=== PATIENT | female | born 1950 | race Caucasian/White ===

== ENCOUNTER 2016-09-15 09:54 | Inpatient (IN) | payer MEDICARE, OTHER ==
[~2016-09-15] VITALS: Ht 163.8 cm; Wt 107.7 kg
[~2016-09-15 09:54] MED LIST changes: -ALBU0.63 NEB; +BUPIVACAINE LIPOSOME PF 1.3% 20 ML VIAL INFIL ONE; -DOCU1CAP39 PO; -NOVONP2 SQ; -PERC5TAB12 PO; +STERILE TALC 4 GM AEROSOL CAN I-PLEURAL ONE; -VANCOMYCIN HCL 1000 MG VIAL ONE; +VANCOMYCIN HCL 1000 MG VIAL OTHER ONE
[2016-09-15] MEDS ORDERED: NOVONP2 SQ (12:20)
[2016-09-15] MEDS ORDERED: ALBU0.63 NEB (12:24)
[2016-09-16] VITALS (7 sets, daily range): BP systolic 129–189; BP diastolic 67–93; PULSE 58–94; RESP 16–22; TEMP 97.1–97.8; O2SAT 97–99
[2016-09-16] MEDS ORDERED: METOPROLOL TARTRATE 25 MG TAB PO PRN (06:30)
[2016-09-16] MEDS ORDERED: SODIUM CHLORID 0.9% 500 ML IV SCH (06:30)
[2016-09-16] MEDS: LACTATED RINGER'S 1000 ML IV SCH (06:30)
[2016-09-16] MEDS ORDERED: INSULIN HUMAN REGULAR 1,000 UNITS/10 ML VIAL SQ PRN (06:30)
[2016-09-16] MEDS ORDERED: DEXAMETHASONE SOD PHOS 4 MG/ML VIAL ONE (07:09)
[2016-09-16] MEDS ORDERED: MIDAZOLAM HCL 2 MG/2 ML VIAL ONE (07:09)
[2016-09-16] MEDS ORDERED: ACETAMINOPHEN 1000 MG/100 ML VIAL IV ONE (07:09)
[2016-09-16] MEDS ORDERED: FAMOTIDINE 20 MG/2 ML VIAL ONE (07:09)
[2016-09-16] MEDS ORDERED: BUPIVACAINE LIPOSO PF 1.3% INJ 20 ML, DEXAMETHASONE INJ 4 MG in SODIUM CHLORIDE 0.9% IN... PERIART SCH (07:45)
[2016-09-16] MEDS ORDERED: RESP: ALBUTEROL 2.5 MG/3 ML NEB (PRN) NEB (09:15)
[2016-09-16] MEDS ORDERED: ACETAMINOPHEN 325 MG TAB PO PRN (09:15)
[2016-09-16] MEDS ORDERED: oxyCODONE/ACETAMINOPHEN 5 MG/325 MG TAB PO PRN (09:15)
[2016-09-16] MEDS ORDERED: MAGNESIUM HYDROXIDE SUSP 30 ML CUP PO PRN (09:15)
[2016-09-16] MEDS ORDERED: Post-op Orders (for Pharmacy) MISC OTHER ONE (09:15)
[2016-09-16] MEDS ORDERED: ONDANSETRON HCL 4 MG/2 ML VIAL IV PUSH PRN (09:15)
[2016-09-16] MEDS ORDERED: SODIUM CHLORIDE 0.9% FLUSH 5 ML FLUSH IV FLUSH PRN (09:15)
[2016-09-16] MEDS ORDERED: fentaNYL CITRATE 250 MCG/5 ML AMP ONE (09:40)
[2016-09-16] MEDS: RESP: ALBUTEROL 2.5 MG/3 ML NEB (SCH) NEB ×3 (10:00→20:53)
[2016-09-16] MEDS ORDERED: DO NOT ADM ANY ANTICOAGULANT DRUGS XX PRN (10:15)
--- NOTE | 2016-09-16 10:25 | RADRPT ---
EXAM DATE/TIME: 09/16/2016 09:43 [facility] COMPARISON: CHEST EXPIRATION ONLY, August 12, 2016, 14:23. INDICATIONS : S/p thoracotomy MEDICAL HISTORY : Hypertension. Chronic obstructive pulmonary disease. SURGICAL HISTORY : None. ENCOUNTER: Initial ACUITY: 1 day PAIN SCORE: Non-responsive. LOCATION: Bilateral chest FINDINGS: A single view of the chest demonstrates the lungs to be symmetrically aerated without evidence of mas s, infiltrate or effusion. Cardiomegaly and slight interstitial prominence. The cardiomediastinal con tours are unremarkable. Osseous structures are intact. CONCLUSION: Cardiomegaly and slight interstitial prominence. No pleural effusions or pneumothorax. Remigio Narayanan MD on September 16, 2016 at 10:22 Board Certified Radiologist. This report was verified electronically.
[2016-09-16] MEDS ORDERED: INSULIN NovoLIN REGULAR SUPPLEMENTAL SCALE ONE (10:35)
[2016-09-16] MEDS ORDERED: INSULIN HUMAN REGULAR 1,000 UNITS/10 ML VIAL SQ ONE (11:30)
[2016-09-16] MEDS ORDERED: PHENYLEPH/NS 1000 MCG/10 ML SYR IV ONE (12:00)
[2016-09-16] MEDS ORDERED: ePHEDrine/NS 25 MG/5 ML SYR IV ONE (12:00)
[2016-09-16] MEDS ORDERED: NORMOSOL R INJ 1,000 ML IV ONE (12:00)
[2016-09-16] MEDS ORDERED: PROPOFOL 200 MG/20 ML AMP IV ONE (12:00)
[2016-09-16] MEDS ORDERED: SODIUM CHLORID 0.9% 500 ML INJ 500 ML IV ONE (12:00)
[2016-09-16] MEDS ORDERED: NEOSTIGMINE 3 MG/3 ML SYR IV ONE (12:00)
[2016-09-16] MEDS ORDERED: VECURONIUM BROMIDE 10 MG VIAL IV ONE (12:00)
[2016-09-16] MEDS ORDERED: SUGAMMADEX SODIUM 200 MG/2 ML VIAL IV PUSH ONE ×2 (12:00)
[2016-09-16] MEDS ORDERED: ONDANSETRON HCL 4 MG/2 ML VIAL IV PUSH ONE (12:00)
[2016-09-16] MEDS: KETOROLAC TROMETHAMINE 30 MG/ML (IVP) VIAL IV PUSH SCH ×2 (12:01→23:12)
[2016-09-16] MEDS: ACETAMINOPHEN 1000 MG/100 ML VIAL IV SCH ×2 (12:44→20:19)
[2016-09-16] MEDS ORDERED: AMIODARONE HCL 150 MG/3 ML VIAL IV ONE (13:34)
[2016-09-16] MEDS ORDERED: AMINOCAPROIC ACID INJ 250 MG/ML 20 ML VIAL IV ONE (13:34)
[2016-09-16] MEDS ORDERED: ESMOLOL HCL 100 MG/10 ML VIAL IV ONE (13:35)
[2016-09-16] MEDS ORDERED: DEXTROSE 5% IN WATER 100ML INJ 100 ML IV ONE (13:35)
[2016-09-16] MEDS ORDERED: EPINEPHrine HCL (1:1000) 30 MG/30 ML VIAL IV ONE (13:36)
[2016-09-16] MEDS ORDERED: HEPARIN SODIUM - SQ 10,000 UNITS/ML VIAL SQ ONE (13:37)
--- NOTE | 2016-09-16 13:37 | PD.OP ---
cc: Moody So MD; Tye Stinson MD Operative Report Date of Surgery: Sep 16, 2016 Preoperative Diagnosis: Postoperative Diagnosis: Procedure: 1. Left Video-Assisted Thoracoscopic Surgery (VATS). 2. Evacuation of Pleural Effusion. 3. Talc Pleurodesis. 4. Intercostal Nerve Block . Surgeon: Moody So Concrete Stone Fabricator(s): Brittny Means Operation and Findings: PREOPERATIVE DIAGNOSES 1. Recurrent Left Pleural Effusion. 2. Chronic Renal Insufficiency POSTOPERATIVE DIAGNOSES Same SURGICAL PROCEDURE 1. Left Video-Assisted Thoracoscopic Surgery (VATS). 2. Evacuation of Pleural Effusion. 3. Talc Pleurodesis. 4. Intercostal Nerve Block SURGEON Moody So MD IMPLEMENT MECHANIC CARMEN Sultana ANESTHESIA General double lumen endotracheal. CLAY DRY PRESS OPERATOR MARCELO Boswell, BURTON Rey MD PREPARATION ChloraPrep. COUNTS Needle, sponge, and instrument counts are correct. DRAINS One 24 Fr Manuel drain COMPLICATIONS None. INDICATIONS The patient is a 65 YO lady status post previous left thoracentesis for recurrent pleural effusion. The patient is being brought to the operating room for drainage and pleurodesis. DESCRIPTION OF PROCEDURE The patient was brought to the operating room and placed supine on the OR table. Following the induction of adequate general double lumen endotracheal anesthesia and placement of appropriate monitoring devices, the patient was placed in the right lateral decubitus position. The left chest and surrounding areas were then prepped and draped in a standard sterile fashion. A 5 mm camera port was introduced into the 8th intercostal space in posterior axillary line, and the camera introduced. A second 5 mm port was then placed anteriorly under direct visual guidance. Through the port, the suction device was advanced, and approximately 1100 mls of serous fluid evacuated. Complete evacuation of all fluid was confirmed under visual guidance. Exploration revealed no abnormalities of the pleura or of the lung tissue. Through the port site, talc pleurodesis was performed. The anterior port was removed and a 24 Fr Manuel drain was introduced. This was maintained in place with a nonabsorbable suture. Both of the entry sites were injected with Exparel solution. Following confirmation of the catheter in the proper place, the incisions were closed with 3 layers. The cheat drain was attached to a pleur-evac device, and sterile dressing applied. Intercostal nerve block was performed using Ropivacaine/ Morphine solution. The patient tolerated the procedure well and was extubated and transferred to the recovery room in stable condition. Moody So MD Sep 16, 2016 13:37
[2016-09-16] MEDS ORDERED: GLYCOPYRROLATE 0.2 MG/ML VIAL IV ONE (13:38)
[2016-09-16] MEDS ORDERED: DEXTROSE 50% IN WATER 50 ML VIAL(D50) IV PUSH PRN (13:45)
[2016-09-16] MEDS ORDERED: GLUCAGON 1 MG/ML VIAL OTHER PRN (13:45)
[2016-09-16] MEDS: MEDIUM DOSE INSULIN NOVOLIN REGULAR SUPPLEMENTAL SCALE SQ SCH ×2 (16:00→21:35)
[2016-09-16] MEDS: VANCOMYCIN INJ 1,000 MG in SODIUM CHLOR 0.9% 250 ML INJ 250 ML IV SCH (20:18)
[2016-09-16] MEDS: DOCUSATE CALCIUM 240 MG CAP PO SCH ×2 (21:00→21:35)
[2016-09-16] MEDS: FUROSEMIDE 40 MG TAB PO SCH (21:33)
[2016-09-16] MEDS: FLUTICASONE PROPIONATE 220 MCG/ACT 12 GM INHALER INH SCH (21:34)
[2016-09-16] MEDS: VALSARTAN 40 MG TAB PO SCH (21:34)
[2016-09-16] MEDS: DORZOLAMIDE 2% OPTH SOLN 200 DROP/10 ML BTLO EACH EYE SCH (21:34)
[2016-09-16] MEDS: SODIUM CHLORIDE 0.9% FLUSH 5 ML FLUSH IV FLUSH SCH (21:34)
[2016-09-16] MEDS: POTASSIUM CHLORIDE 10 MEQ CONTROLLED RELEASE TAB PO SCH (21:35)
[2016-09-16] MEDS: PANTOPRAZOLE SOD 40 MG DELAYED RELEASE TAB PO SCH (21:35)
[2016-09-16] MEDS: ATORVASTATIN 80 MG TAB PO SCH (21:35)
[2016-09-17] VITALS (20 sets, daily range): BP systolic 120–156; BP diastolic 68–92; PULSE 64–96; RESP 16–20; TEMP 97.5–98; O2SAT 97–100
[2016-09-17] MEDS: ACETAMINOPHEN 1000 MG/100 ML VIAL IV SCH ×2 (00:42→06:24)
[2016-09-17] MEDS: RESP: ALBUTEROL 2.5 MG/3 ML NEB (SCH) NEB ×4 (03:16→21:00)
[2016-09-17] MEDS: LEVOTHYROXINE SODIUM 125 MCG TAB PO SCH (05:46)
[2016-09-17] MEDS: KETOROLAC TROMETHAMINE 30 MG/ML (IVP) VIAL IV PUSH SCH (05:46)
--- NOTE | 2016-09-17 05:46 | RADRPT ---
EXAM DATE/TIME: 09/17/2016 05:21 [facility] COMPARISON: CHEST SINGLE AP, September 16, 2016, 9:43. INDICATIONS : Status post thoracotomy. MEDICAL HISTORY : Hypertension. Chronic obstructive pulmonary disease. SURGICAL HISTORY : None. ENCOUNTER: Subsequent ACUITY: 2 days PAIN SCORE: 0/10 LOCATION: chest FINDINGS: Portable AP view of the chest demonstrates stable cardiac silhouette size at the upper limits for nor mal. Lungs are underinflated with mild bibasilar airspace opacity. Some type or tubing or wires again overlies the left inferior hemithorax. No effusion or pneumothorax is appreciated. CONCLUSION: Stable chest x-ray with cardiac silhouette size at the upper limits for normal. There is stable bibas ilar opacity likely representing either atelectasis or consolidation. Gregor Santiago MD on September 17, 2016 at 5:43 Board Certified Radiologist. This report was verified electronically.
[2016-09-17] MEDS: MEDIUM DOSE INSULIN NOVOLIN REGULAR SUPPLEMENTAL SCALE SQ SCH ×2 (05:52→11:00)
[2016-09-17] MEDS: LACTATED RINGER'S 1000 ML IV SCH (06:30)
[2016-09-17] MEDS: INSULIN HUMAN NPH 1,000 UNITS/10 ML VIAL SQ SCH (09:00)
[2016-09-17] MEDS: FLUTICASONE PROPIONATE 220 MCG/ACT 12 GM INHALER INH SCH ×2 (09:00→21:06)
[2016-09-17] MEDS: DORZOLAMIDE/TIMOLOL OPTH SOLN 10 ML BTL EACH EYE SCH (09:00)
[2016-09-17] MEDS: DORZOLAMIDE 2% OPTH SOLN 200 DROP/10 ML BTLO EACH EYE SCH ×2 (09:00→21:08)
[2016-09-17] MEDS: VALSARTAN 40 MG TAB PO SCH ×2 (09:42→21:07)
[2016-09-17] MEDS: POTASSIUM CHLORIDE 10 MEQ CONTROLLED RELEASE TAB PO SCH ×2 (09:42→21:07)
[2016-09-17] MEDS: FUROSEMIDE 40 MG TAB PO SCH ×2 (09:43→17:34)
[2016-09-17] MEDS: VANCOMYCIN INJ 1,000 MG in SODIUM CHLOR 0.9% 250 ML INJ 250 ML IV SCH (09:48)
[2016-09-17] MEDS: SODIUM CHLORIDE 0.9% FLUSH 5 ML FLUSH IV FLUSH SCH ×2 (09:49→21:07)
--- NOTE | 2016-09-17 16:20 | PD.CAR.PN ---
CVT Progress Note Subjective/Hospital Course: 65/ f recurrent left pleural effusion / COPD PMH: HTN, HLP, DM, LIBBY surgery: 2/3 Left Video-Assisted Thoracoscopic Surgery (VATS), Evacuation of Pleural Effusion, Talc Pleurodesis. 2/3 on nasal cannula drained 250cc/ from CT / 12 hrs pain controlled consult PT / oob ambulate . Objective: GENERAL: SKIN: Warm and dry. HEAD: Normocephalic. EYES: No scleral icterus. No injection or drainage. NECK: Supple, trachea midline. No JVD or lymphadenopathy. CARDIOVASCULAR: Regular rate and rhythm without murmurs, gallops, or rubs. RESPIRATORY: diminished left lower lobe, chest tube in place left chest wall, no air leak to wall suction Breath sounds equal bilaterally. No accessory muscle use. GASTROINTESTINAL: Abdomen soft, non-tender, nondistended. MUSCULOSKELETAL: No cyanosis, or edema. BACK: Nontender without obvious deformity. No CVA tenderness. Vital Signs Date Time Temp Pulse Resp B/P Pulse Ox O2 Delivery O2 Flow Rate FiO2 09/17/16 14:59 97 Nasal Cannula 2.00 09/17/16 14:39 90 09/17/16 13:08 81 09/17/16 12:11 96 09/17/16 11:50 97.5 87 20 148/86 99 09/17/16 11:45 81 09/17/16 10:38 94 09/17/16 08:40 97.6 85 20 156/92 100 09/17/16 06:00 74 09/17/16 05:00 75 09/17/16 04:00 64 09/17/16 03:00 97.6 78 16 139/87 98 09/17/16 03:00 78 09/17/16 02:00 65 09/17/16 01:00 73 09/17/16 00:00 74 09/16/16 23:00 97.8 76 16 137/80 98 09/16/16 23:00 70 09/16/16 22:00 72 09/16/16 21:00 60 09/16/16 20:00 58 09/16/16 19:30 97.7 65 16 129/67 99 Telemetry: NSR (1) Pleural effusion, left (2) 1. Left Video-Assisted Thoracoscopic Surgery (VATS). Plan: talc/ path pending leave chest tube in pulm toileting wean 02 as tolerated (3) Insulin dependent diabetes mellitus Plan: home meds resumed increase Sliding scale coverage preprandial coverage (4) Hypertension Plan: home meds/ stable (5) COPD (chronic obstructive pulmonary disease) Plan: nebs / flovent (6) Atrial fibrillation (7) CKD (chronic kidney disease) stage 3, GFR 30-59 ml/min Plan: check labs in Marjan Nielson Sep 17, 2016 16:20
[2016-09-17] MEDS ORDERED: DEXTROSE 50% IN WATER 50 ML VIAL(D50) IV PUSH PRN (16:30)
[2016-09-17] MEDS ORDERED: GLUCAGON 1 MG/ML VIAL OTHER PRN (16:30)
[2016-09-17] MEDS: INSULIN ASPART 1,000 UNITS/10 ML VIAL SQ SCH (17:00)
[2016-09-17] MEDS: INSULIN ASPART SUPPLEMENTAL SCALE SQ SCH ×2 (17:30→21:08)
[2016-09-17] MEDS: oxyCODONE/ACETAMINOPHEN 5 MG/325 MG TAB PO PRN ×2 (17:33→21:14)
[2016-09-17] MEDS: ATORVASTATIN 80 MG TAB PO SCH (21:07)
[2016-09-17] MEDS: DOCUSATE SODIUM 100 MG CAP PO SCH (21:07)
[2016-09-17] MEDS: PANTOPRAZOLE SOD 40 MG DELAYED RELEASE TAB PO SCH (21:08)
[2016-09-18] VITALS (22 sets, daily range): BP systolic 110–163; BP diastolic 55–90; PULSE 58–86; RESP 16–21; TEMP 97.6–98; O2SAT 92–99
[2016-09-18] MEDS: oxyCODONE/ACETAMINOPHEN 5 MG/325 MG TAB PO PRN ×2 (01:20→05:48)
[2016-09-18] MEDS: RESP: ALBUTEROL 2.5 MG/3 ML NEB (SCH) NEB ×4 (04:08→21:00)
[2016-09-18] MEDS: LEVOTHYROXINE SODIUM 125 MCG TAB PO SCH (05:48)
--- NOTE | 2016-09-18 05:58 | RADRPT ---
EXAM DATE/TIME: 09/18/2016 05:18 [facility] COMPARISON: CHEST SINGLE AP, September 17, 2016, 5:21. INDICATIONS : Shortness of breath, possible pulmonary disease. MEDICAL HISTORY : Hypertension. Chronic obstructive pulmonary disease. SURGICAL HISTORY : None. ENCOUNTER: Subsequent ACUITY: 3 days PAIN SCORE: 0/10 LOCATION: Bilateral chest FINDINGS: Portable AP view of the chest demonstrates a normal-sized cardiac silhouette with calcification of th e aorta. Lungs are underinflated and there is mild airspace opacity at the right lung base. No pleura l effusion or pneumothorax is identified. There is some type of a tube or line overlying the left low er hemithorax. CONCLUSION: Stable chest x-ray with opacity at the right lung base that represents atelectasis or airspace consol idation. Atelectasis is favored given the appearance. Gregor Santiago MD on September 18, 2016 at 5:56 Board Certified Radiologist. This report was verified electronically.
[2016-09-18] MEDS: LACTATED RINGER'S 1000 ML IV SCH (06:30)
[2016-09-18 07:35] LABS: HEMATOCRIT 33.3 % (35.0-46.0); MEAN CORPUSCULAR HEMOGLOBIN 31.1 PG (27.0-34.0); MEAN CORPUSCULAR HGB CONC 34.2 % (32.0-36.0); PLATELET COUNT 196 TH/MM3 (150-450); RED BLOOD COUNT 3.66 MIL/MM3 (4.00-5.30); RED CELL DISTRIBUTION WIDTH 16.1 % (11.6-17.2); REVIEW FLAG FINAL; WHITE BLOOD COUNT 13.5 TH/MM3 (4.0-11.0)
[2016-09-18 07:52] LABS: BICARBONATE 26.8 MEQ/L (21.0-32.0); POTASSIUM 3.9 MEQ/L (3.5-5.1)
[2016-09-18] MEDS: POLYETHYLENE GLYCOL 17 GM PKG PO SCH (08:33)
[2016-09-18] MEDS: VALSARTAN 40 MG TAB PO SCH ×2 (08:33→20:37)
[2016-09-18] MEDS: DOCUSATE SODIUM 100 MG CAP PO SCH ×2 (08:33→20:40)
[2016-09-18] MEDS: POTASSIUM CHLORIDE 10 MEQ CONTROLLED RELEASE TAB PO SCH ×2 (08:33→20:37)
[2016-09-18] MEDS: FUROSEMIDE 40 MG TAB PO SCH ×2 (08:33→17:34)
[2016-09-18] MEDS: SODIUM CHLORIDE 0.9% FLUSH 5 ML FLUSH IV FLUSH SCH ×2 (08:34→20:36)
[2016-09-18] MEDS: FLUTICASONE PROPIONATE 220 MCG/ACT 12 GM INHALER INH SCH ×2 (08:34→20:35)
[2016-09-18] MEDS: DORZOLAMIDE 2% OPTH SOLN 200 DROP/10 ML BTLO EACH EYE SCH ×2 (08:35→20:35)
--- NOTE | 2016-09-18 08:45 | PD.CAR.PN ---
CVT Progress Note Subjective/Hospital Course: 65/ f recurrent left pleural effusion / COPD PMH: HTN, HLP, DM, LIBBY surgery: 2/3 Left Video-Assisted Thoracoscopic Surgery (VATS), Evacuation of Pleural Effusion, Talc Pleurodesis. 2/3 on nasal cannula drained 250cc/ from CT / 12 hrs pain controlled consult PT / oob ambulate 2/[address] to suction Ambulate . Objective: Vital Signs Date Time Temp Pulse Resp B/P Pulse Ox O2 Delivery O2 Flow Rate FiO2 09/18/16 08:00 97.6 66 17 142/83 98 09/18/16 07:00 78 09/18/16 06:00 72 09/18/16 04:00 98.0 73 16 117/55 99 09/18/16 04:00 68 09/18/16 02:00 70 09/18/16 00:00 82 09/18/16 00:00 97.8 82 16 157/78 98 09/17/16 22:00 84 09/17/16 20:00 90 09/17/16 20:00 97.9 90 16 147/68 100 09/17/16 18:05 72 09/17/16 17:19 90 09/17/16 16:09 98.0 84 18 120/74 98 09/17/16 16:09 84 09/17/16 14:59 97 Nasal Cannula 2.00 09/17/16 14:39 90 09/17/16 13:08 81 09/17/16 12:11 96 09/17/16 11:50 97.5 87 20 148/86 99 09/17/16 11:45 81 09/17/16 10:38 94 Labs: Laboratory Tests Test 09/18/16 06:00 White Blood Count 13.5 TH/MM3 (4.0-11.0) Red Blood Count 3.66 MIL/MM3 (4.00-5.30) Hemoglobin 11.4 GM/DL (11.6-15.3) Hematocrit 33.3 % (35.0-46.0) Mean Corpuscular Volume 91.0 FL (80.0-100.0) Mean Corpuscular Hemoglobin 31.1 PG (27.0-34.0) Mean Corpuscular Hemoglobin 34.2 % Concent (32.0-36.0) Red Cell Distribution Width 16.1 % (11.6-17.2) Platelet Count 196 TH/MM3 (150-450) Mean Platelet Volume 8.6 FL (7.0-11.0) Sodium Level 133 MEQ/L (136-145) Potassium Level 3.9 MEQ/L (3.5-5.1) Chloride Level 99 MEQ/L (98-107) Carbon Dioxide Level 26.8 MEQ/L (21.0-32.0) Anion Gap 7 MEQ/L (5-15) Blood Urea Nitrogen 29 MG/DL (7-18) Creatinine 1.92 MG/DL (0.50-1.00) Estimat Glomerular Filtration 26 ML/MIN (>89) Rate Random Glucose 156 MG/DL (74-106) Calcium Level 8.6 MG/DL (8.5-10.1) Result Diagram: 09/18/16 0600 09/18/16 0600 (1) Pleural effusion, left (2) 1. Left Video-Assisted Thoracoscopic Surgery (VATS). Plan: talc/ path pending leave chest tube in pulm toileting wean 02 as tolerated (3) Insulin dependent diabetes mellitus Plan: home meds resumed increase Sliding scale coverage preprandial coverage (4) Hypertension Plan: home meds/ stable (5) COPD (chronic obstructive pulmonary disease) Plan: nebs / flovent (6) Atrial fibrillation (7) CKD (chronic kidney disease) stage 3, GFR 30-59 ml/min Plan: check labs in Moody So MD Sep 18, 2016 08:45
[2016-09-18] MEDS: DORZOLAMIDE/TIMOLOL OPTH SOLN 10 ML BTL EACH EYE SCH (09:00)
[2016-09-18] MEDS: INSULIN ASPART SUPPLEMENTAL SCALE SQ SCH ×4 (09:36→21:00)
[2016-09-18] MEDS: INSULIN ASPART 1,000 UNITS/10 ML VIAL SQ SCH ×3 (09:37→17:00)
[2016-09-18] MEDS: INSULIN HUMAN NPH 1,000 UNITS/10 ML VIAL SQ SCH (09:40)
[2016-09-18] MEDS: ATORVASTATIN 80 MG TAB PO SCH (20:37)
[2016-09-18] MEDS: PANTOPRAZOLE SOD 40 MG DELAYED RELEASE TAB PO SCH (20:37)
[2016-09-19] VITALS (29 sets, daily range): BP systolic 125–155; BP diastolic 74–91; PULSE 68–104; RESP 16–20; TEMP 97.8–98.3; O2SAT 91–98
[2016-09-19] MEDS: RESP: ALBUTEROL 2.5 MG/3 ML NEB (SCH) NEB ×4 (03:18→20:54)
--- NOTE | 2016-09-19 04:20 | RADRPT ---
EXAM DATE/TIME: 09/19/2016 03:29 [facility] COMPARISON: CHEST SINGLE AP, September 18, 2016, 5:18. INDICATIONS : Shortness of breath, possible pulmonary disease. MEDICAL HISTORY : Hypertension. Chronic obstructive pulmonary disease. SURGICAL HISTORY : None. ENCOUNTER: Subsequent ACUITY: 4 - 6 days PAIN SCORE: 0/10 LOCATION: Bilateral chest FINDINGS: Portable AP view of the chest demonstrates a normal-sized cardiac silhouette with calcification of th e aorta. Lungs are underinflated and there is bibasilar airspace opacity, right greater than left. No pneumothorax or definite effusion is appreciated. A stable line overlies the left inferior hemithora x. CONCLUSION: Stable chest x-ray with mild bibasilar opacity, right greater than left, representing either atelecta sis or consolidation. Gregor Santiago MD on September 19, 2016 at 4:17 Board Certified Radiologist. This report was verified electronically.
[2016-09-19] MEDS: LEVOTHYROXINE SODIUM 125 MCG TAB PO SCH (06:03)
[2016-09-19] MEDS: LACTATED RINGER'S 1000 ML IV SCH (06:30)
--- NOTE | 2016-09-19 08:15 | PD.CAR.PN ---
CVT Progress Note Subjective/Hospital Course: 65/ f recurrent left pleural effusion / COPD PMH: HTN, HLP, DM, LIBBY surgery: 2/3 Left Video-Assisted Thoracoscopic Surgery (VATS), Evacuation of Pleural Effusion, Talc Pleurodesis. 2/3 on nasal cannula drained 250cc/ from CT / 12 hrs pain controlled consult PT / oob ambulate 2/[address] to suction Ambulate . 09/19 CT drainage declining Likely remove CT tomorrow and discharge home Objective: Vital Signs Date Time Temp Pulse Resp B/P Pulse Ox O2 Delivery O2 Flow Rate FiO2 09/19/16 06:00 82 09/19/16 05:00 80 09/19/16 04:00 97.8 94 20 145/77 93 09/19/16 04:00 88 09/19/16 03:21 92 Nasal Cannula 2.00 09/19/16 03:00 70 09/19/16 02:00 70 09/19/16 01:00 70 09/19/16 00:00 74 09/19/16 00:00 97.9 84 20 125/74 94 09/18/16 23:00 72 09/18/16 22:00 76 09/18/16 21:00 84 09/18/16 20:00 97.7 79 21 163/90 98 09/18/16 20:00 80 09/18/16 18:03 82 09/18/16 17:00 79 09/18/16 16:00 69 09/18/16 15:57 93 Nasal Cannula 2.00 09/18/16 15:00 79 09/18/16 15:00 97.9 79 18 134/90 92 09/18/16 14:00 72 09/18/16 13:00 85 09/18/16 12:00 86 09/18/16 11:00 97.6 58 17 110/60 93 09/18/16 11:00 81 09/18/16 10:00 78 09/18/16 09:29 98 Nasal Cannula 1.50 09/18/16 09:00 76 Result Diagram: 09/18/16 0600 09/18/16 0600 (1) Pleural effusion, left (2) 1. Left Video-Assisted Thoracoscopic Surgery (VATS). Plan: talc/ path pending leave chest tube in pulm toileting wean 02 as tolerated (3) Insulin dependent diabetes mellitus Plan: home meds resumed increase Sliding scale coverage preprandial coverage (4) Hypertension Plan: home meds/ stable (5) COPD (chronic obstructive pulmonary disease) Plan: nebs / flovent (6) Atrial fibrillation (7) CKD (chronic kidney disease) stage 3, GFR 30-59 ml/min Plan: check labs in am Moody So MD Sep 19, 2016 08:15
[2016-09-19] MEDS: INSULIN ASPART SUPPLEMENTAL SCALE SQ SCH ×4 (08:31→21:00)
[2016-09-19] MEDS: INSULIN ASPART 1,000 UNITS/10 ML VIAL SQ SCH ×3 (08:31→17:22)
[2016-09-19] MEDS: POTASSIUM CHLORIDE 10 MEQ CONTROLLED RELEASE TAB PO SCH ×2 (08:33→20:45)
[2016-09-19] MEDS: VALSARTAN 40 MG TAB PO SCH ×2 (08:33→20:45)
[2016-09-19] MEDS: DOCUSATE SODIUM 100 MG CAP PO SCH ×2 (08:33→21:00)
[2016-09-19] MEDS: POLYETHYLENE GLYCOL 17 GM PKG PO SCH (08:33)
[2016-09-19] MEDS: FUROSEMIDE 40 MG TAB PO SCH ×2 (08:33→17:22)
[2016-09-19] MEDS: SODIUM CHLORIDE 0.9% FLUSH 5 ML FLUSH IV FLUSH SCH ×2 (08:34→21:00)
[2016-09-19] MEDS: DORZOLAMIDE 2% OPTH SOLN 200 DROP/10 ML BTLO EACH EYE SCH ×2 (08:34→20:46)
[2016-09-19] MEDS: FLUTICASONE PROPIONATE 220 MCG/ACT 12 GM INHALER INH SCH ×2 (08:34→20:45)
[2016-09-19] MEDS: DORZOLAMIDE/TIMOLOL OPTH SOLN 10 ML BTL EACH EYE SCH (08:35)
[2016-09-19] MEDS: INSULIN HUMAN NPH 1,000 UNITS/10 ML VIAL SQ SCH (10:31)
[2016-09-19] MEDS: ATORVASTATIN 80 MG TAB PO SCH (20:45)
[2016-09-19] MEDS: PANTOPRAZOLE SOD 40 MG DELAYED RELEASE TAB PO SCH (21:00)
[2016-09-20] VITALS (15 sets, daily range): BP systolic 129–147; BP diastolic 60–84; PULSE 71–92; RESP 16–20; TEMP 97–98.3; O2SAT 93–98
[2016-09-20] MEDS: RESP: ALBUTEROL 2.5 MG/3 ML NEB (SCH) NEB ×2 (03:16→10:01)
[2016-09-20] MEDS: LEVOTHYROXINE SODIUM 125 MCG TAB PO SCH (06:00)
[2016-09-20] MEDS: INSULIN ASPART SUPPLEMENTAL SCALE SQ SCH ×2 (06:18→12:03)
[2016-09-20] MEDS: LACTATED RINGER'S 1000 ML IV SCH (06:30)
[2016-09-20] MEDS: DORZOLAMIDE 2% OPTH SOLN 200 DROP/10 ML BTLO EACH EYE SCH (08:27)
[2016-09-20] MEDS: INSULIN ASPART 1,000 UNITS/10 ML VIAL SQ SCH ×2 (08:28→12:04)
[2016-09-20] MEDS: FLUTICASONE PROPIONATE 220 MCG/ACT 12 GM INHALER INH SCH (08:28)
[2016-09-20] MEDS: INSULIN HUMAN NPH 1,000 UNITS/10 ML VIAL SQ SCH (08:29)
[2016-09-20] MEDS: VALSARTAN 40 MG TAB PO SCH (08:30)
[2016-09-20] MEDS: FUROSEMIDE 40 MG TAB PO SCH (08:30)
[2016-09-20] MEDS: POTASSIUM CHLORIDE 10 MEQ CONTROLLED RELEASE TAB PO SCH (08:30)
[2016-09-20] MEDS: DOCUSATE SODIUM 100 MG CAP PO SCH (08:31)
[2016-09-20] MEDS: POLYETHYLENE GLYCOL 17 GM PKG PO SCH (08:31)
[2016-09-20] MEDS: SODIUM CHLORIDE 0.9% FLUSH 5 ML FLUSH IV FLUSH SCH (08:31)
[2016-09-20] MEDS: DORZOLAMIDE/TIMOLOL OPTH SOLN 10 ML BTL EACH EYE SCH (08:34)
[2016-09-20] MEDS ORDERED: DOCU1CAP39 PO (13:10)
--- NOTE | 2016-09-20 13:15 | HHI.DS ---
Discharge Summary Admission Date Sep 16, 2016 at 05:47 Discharge Date: Sep 20, 2016 Admitting Diagnosis recurrent pleural effusion (1) CHF (congestive heart failure) Diagnosis: Secondary (2) DM (diabetes mellitus) Diagnosis: Principal (3) CKD (chronic kidney disease) stage 3, GFR 30-59 ml/min Diagnosis: Principal (4) 1. Left Video-Assisted Thoracoscopic Surgery (VATS). Diagnosis: Secondary (5) Pleural effusion, left Diagnosis: Principal Procedures 1. Left Video-Assisted Thoracoscopic Surgery (VATS). 2. Evacuation of Pleural Effusion. 3. Talc Pleurodesis. 4. Intercostal Nerve Block Brief History 65/ f recurrent left pleural effusion / COPD PMH: HTN, HLP, DM, LIBBY surgery: / Left Video-Assisted Thoracoscopic Surgery (VATS), Evacuation of Pleural Effusion, Talc Pleurodesis. CBC/BMP: 09/18/16 0600 09/18/16 0600 Significant Findings Laboratory Tests Test 09/18/16 06:00 White Blood Count 13.5 TH/MM3 (4.0-11.0) Red Blood Count 3.66 MIL/MM3 (4.00-5.30) Hemoglobin 11.4 GM/DL (11.6-15.3) Hematocrit 33.3 % (35.0-46.0) Sodium Level 133 MEQ/L (136-145) Blood Urea Nitrogen 29 MG/DL (7-18) Creatinine 1.92 MG/DL (0.50-1.00) Estimat Glomerular Filtration 26 ML/MIN (>89) Rate Random Glucose 156 MG/DL (74-106) Imaging Last Impressions Chest X-Ray 09/19/16 0500 Signed Impressions: Service Date/Time: Monday, September 19, 2016 03:29 - CONCLUSION: Stable chest x-ray with mild bibasilar opacity, right greater than left, representing either atelectasis or consolidation. Gregor Santiago MD PE at Discharge GENERAL: SKIN: Warm and dry. HEAD: Normocephalic. EYES: No scleral icterus. No injection or drainage. NECK: Supple, trachea midline. No JVD or lymphadenopathy. CARDIOVASCULAR: Regular rate and rhythm without murmurs, gallops, or rubs. RESPIRATORY: Breath sounds equal bilaterally., diminished left lower lobe No accessory muscle use./ chest tube dc / vaseline dressing applied GASTROINTESTINAL: Abdomen soft, non-tender, nondistended. MUSCULOSKELETAL: No cyanosis, or edema. BACK: Nontender without obvious deformity. No CVA tenderness. Hospital Course 65/ f recurrent left pleural effusion / COPD PMH: HTN, HLP, DM, LIBBY surgery: 2/3 Left Video-Assisted Thoracoscopic Surgery (VATS), Evacuation of Pleural Effusion, Talc Pleurodesis. 2/3 on nasal cannula drained 250cc/ from CT / 12 hrs pain controlled consult PT / oob ambulate 2/ Doing well Continue CT to suction Ambulate . 2/ CT drainage declining Likely remove CT tomorrow and discharge home / <100cc drainage from chest tube 12 hrs chest tube dc without difficulty pain controlled for dc home later today Pt Condition on Discharge: Good Discharge Disposition: Disch w/ Home Health Serv Discharge Instructions DIET: Follow Instructions for: Diabetic Diet Activities you can perform: Full Weight Bearing, Shower Only-No Bath Activities to avoid: Lifting/Bending, Driving Additional Activity Instructio: no lifting > 8 lbs or gallon of milk New Medications: Docusate Sodium (Dok) 100 Mg Cap 100 MG PO BID Constipation #30 CAP Continued Medications: Albuterol 18 GM Inh (Ventolin Hfa 18 GM Inh) 90 Mcg/Act Aer 2 PUFF INH Q4-6H PRN SHORTNESS OF BREATH #1 Ref 0 INHALER Albuterol Neb (Albuterol Neb) 0.63 Mg/3 Ml Neb 0.63 MG NEB Q4HR NEB PRN SHORTNESS OF BREATH #25 Ref 0 NEBULE Atorvastatin (Atorvastatin) 80 Mg Tab 80 MG PO HS Cholesterol Management #30 Ref 0 TAB Dorzolamide Opth Drops (Dorzolamide Opth Drops) 2% Soln 1 DROP EACH EYE BID Glaucoma #1 Ref 0 BOTTLE Fluticasone 12 GM Inh (Flovent Hfa 12 GM Inh) 220 Mcg/Act Inh 2 PUFF INH BID Use daily at the same time. Asthma Management #1 Ref 0 INHALER Furosemide (Lasix) 40 Mg Tab 40 MG PO BID@09,18 chf #60 TAB Insulin Human NPH Inj (Novolin N Inj) 1,000 Unit/10 Ml Vial 20 UNITS SQ DAILY Blood Sugar Management #10 Ref 0 ML Insulin Human Regular Inj (Novolin R Inj) 1,000 Unit/10 Ml Vial 1 SQ DIRECTED Sliding Scale As Directed. Blood Sugar Management #10 Ref 0 ML Levothyroxine (Levothyroxine) 125 Mcg Tab 125 MCG PO DAILY Thyroid #30 Ref 0 TAB Montelukast (Montelukast) 10 Mg Tab 10 MG PO q48 hrs #30 Ref 0 TAB Potassium Chloride ER (K-Tab) 10 Meq Tab 10 MEQ PO BID Electrolyte Replacement #60 Ref 0 TAB Valsartan (Valsartan) 40 Mg Tab 40 MG PO BID chf #60 Ref 0 TAB Marjan Waite Sep 20, 2016 13:15
--- NOTE | 2016-09-20 13:18 | HHI.DS ---
Discharge Summary Admission Date Sep 16, 2016 at 05:47 Admitting Diagnosis (1) CHF (congestive heart failure) Diagnosis: Secondary (2) DM (diabetes mellitus) Diagnosis: Principal (3) CKD (chronic kidney disease) stage 3, GFR 30-59 ml/min Diagnosis: Principal (4) 1 Left Video Assisted Thoracoscopic Surgery VATS Diagnosis: Secondary (5) Pleural effusion, left Diagnosis: Principal Procedures 1. Left Video-Assisted Thoracoscopic Surgery (VATS). 2. Evacuation of Pleural Effusion. 3. Talc Pleurodesis. 4. Intercostal Nerve Block Brief History 65/ f recurrent left pleural effusion / COPD PMH: HTN, HLP, DM, LIBBY surgery: 2/3 Left Video-Assisted Thoracoscopic Surgery (VATS), Evacuation of Pleural Effusion, Talc Pleurodesis. CBC/BMP: 09/18/16 0600 09/18/16 0600 Significant Findings Laboratory Tests Test 09/18/16 06:00 White Blood Count 13.5 TH/MM3 (4.0-11.0) Red Blood Count 3.66 MIL/MM3 (4.00-5.30) Hemoglobin 11.4 GM/DL (11.6-15.3) Hematocrit 33.3 % (35.0-46.0) Sodium Level 133 MEQ/L (136-145) Blood Urea Nitrogen 29 MG/DL (7-18) Creatinine 1.92 MG/DL (0.50-1.00) Estimat Glomerular Filtration 26 ML/MIN (>89) Rate Random Glucose 156 MG/DL (74-106) PE at Discharge GENERAL: SKIN: Warm and dry. HEAD: Normocephalic. EYES: No scleral icterus. No injection or drainage. NECK: Supple, trachea midline. No JVD or lymphadenopathy. CARDIOVASCULAR: Regular rate and rhythm without murmurs, gallops, or rubs. RESPIRATORY: Breath sounds equal bilaterally., diminished left lower lobe No accessory muscle use./ chest tube dc / vaseline dressing applied GASTROINTESTINAL: Abdomen soft, non-tender, nondistended. MUSCULOSKELETAL: No cyanosis, or edema. BACK: Nontender without obvious deformity. No CVA tenderness. Pt Condition on Discharge: Good Discharge Disposition: Disch w/ Home Health Serv Discharge Instructions DIET: Follow Instructions for: Diabetic Diet Activities you can perform: Full Weight Bearing, Shower Only-No Bath Activities to avoid: Lifting/Bending, Driving Additional Activity Instructio: no lifting > 8 lbs or gallon of milk Follow up Referrals: PCP Follow-up - 2 Weeks with Margie Martinez MD Surgical - 2 Weeks with Moody So MD New Medications: Docusate Sodium (Dok) 100 Mg Cap 100 MG PO BID Constipation #30 CAP Continued Medications: Albuterol 18 GM Inh (Ventolin Hfa 18 GM Inh) 90 Mcg/Act Aer 2 PUFF INH Q4-6H PRN SHORTNESS OF BREATH #1 Ref 0 INHALER Albuterol Neb (Albuterol Neb) 0.63 Mg/3 Ml Neb 0.63 MG NEB Q4HR NEB PRN SHORTNESS OF BREATH #25 Ref 0 NEBULE Atorvastatin (Atorvastatin) 80 Mg Tab 80 MG PO HS Cholesterol Management #30 Ref 0 TAB Dorzolamide Opth Drops (Dorzolamide Opth Drops) 2% Soln 1 DROP EACH EYE BID Glaucoma #1 Ref 0 BOTTLE Fluticasone 12 GM Inh (Flovent Hfa 12 GM Inh) 220 Mcg/Act Inh 2 PUFF INH BID Use daily at the same time. Asthma Management #1 Ref 0 INHALER Furosemide (Lasix) 40 Mg Tab 40 MG PO BID@09,18 chf #60 TAB Insulin Human NPH Inj (Novolin N Inj) 1,000 Unit/10 Ml Vial 20 UNITS SQ DAILY Blood Sugar Management #10 Ref 0 ML Insulin Human Regular Inj (Novolin R Inj) 1,000 Unit/10 Ml Vial 1 SQ DIRECTED Sliding Scale As Directed. Blood Sugar Management #10 Ref 0 ML Levothyroxine (Levothyroxine) 125 Mcg Tab 125 MCG PO DAILY Thyroid #30 Ref 0 TAB Montelukast (Montelukast) 10 Mg Tab 10 MG PO q48 hrs #30 Ref 0 TAB Potassium Chloride ER (K-Tab) 10 Meq Tab 10 MEQ PO BID Electrolyte Replacement #60 Ref 0 TAB Valsartan (Valsartan) 40 Mg Tab 40 MG PO BID chf #60 Ref 0 TAB Marjan Waite Sep 20, 2016 13:18
--- NOTE | 2016-09-20 13:19 | HHI.FF ---
Face to Face Verification Diagnosis: (1) Pleural effusion, left (2) 1 Left Video Assisted Thoracoscopic Surgery VATS (3) DM (diabetes mellitus) Home Health Nursing Order: Signs/symptoms of disease process Wound care and dressing changes Instructions: Incentive spirometry Q1 hr x 10, while awake, also use acapella device hourly whole awake chest wall Precautions: NO pushing or pulling, ( pt must use chest pillow to support chest with all activities and with coughing Daily incision care: ok to shower daily, no tub bath. Wash all incisions with liquid dial soap, clean wash cloth to each site, rinse and pat dry. Observe for any signs of infection, such as drainage which is dark yellow, olsen, green or foul smelling. Immediately report to the surgeon any drainage from the chest incision, or legs, and for any abnormal drainage from the chest tube sites. Notify surgeon if any temp >101.5 degrees F. When specialty dressing removed/ or if you do not have one, continue to shower daily as above, then rinse and pat incision dry and paint with betadine daily x 5 days. Allow steri strips to fall off if you have any. Avoid lotions, creams, salves, oils, etc. for the first month F/U appointment: as per [place] instructions: PCP in 2 weeks, CV surgeon 2 weeks, Department Administrator 3-4 weeks For any questions regarding incisions/ dressing / meds / post op care or above Symptoms, Tuesday 8am-5pm Heart & Vascular Surgery Office ( Dr. So & Dr. Palma), After Hours / Nights (5pm -8am) Weekends and Holidays Please call [facility] Cardiac Intermediate Care Unit (C[facility]) Charge Nurse I have seen patient Dyana Perez on 09/20/16. My clinical findings support the need for the requested home health care services because: Patient has SOB Deconditioned w/ increased weakness I certify that my clinical findings support that this patient is homebound because: Post-op weakness Marjan Waite Sep 20, 2016 13:19
[2016-09-20] MEDS ORDERED: PERC5TAB12 PO (13:29)
--- NOTE | 2016-10-05 07:19 | PQ ---
Physician Query Response Document PATIENT: YUKO JUAN : 1950 ADMIT DATE: 09/16/2016 5:47 AM DISCH DATE: 09/20/2016 2:47 PM RESPONDING PROVIDER #: cassie QUERY TEXT: Clarification of Clinical Diagnostic Findings Please clarify documentation or clinical relevance for the clinical / diagnostic findings or whether those are insignificant or unable to be further specified. This patients Pleural Effusion was/is: 1)due to CHF 2)not due to CHF 3)other(PLEASE SPECIFY) If you have any additional questions/comments and/or concerns please call CDI/Coding Hotline @ext [phone] The patient's Clinical Indicators include: Dr. HOLLINS, Physician Discharge Referal documents "Pleural Effusion". The Discharge Summary documents "CHF". Please review the question below and answer to the best of your ability THANK YOU Query created by: Farzad Hollis on 09/28/2016 6:16 AM RESPONSE TEXT: The etiology of the pleural effusion is idiopathic at this point. QUERY TEXT: CHF Acuity and Type Congestive Heart Failure is documented in the Medical Record. Please document the type and acuity (in cludes probable or suspected) Such as: Type: -- Systolic -- Diastolic -- Combined -- Other, please specify Acuity: -- Acute -- Chronic -- Acute on chronic -- Other, please specify Also please document the underlying cause of the CHF (includes probable or suspected) If you have any additional questions/comments and/or concerns please call CDI/Coding Hotline @ext [phone] The patient's Clinical Indicators include: Dr. HOLLINS, chart documentation shows CHF. Can you further specify CHF? Please review below question and answer to the best of your ability. THANK YOU Query created by: Farzad Hollis on 09/28/2016 6:24 AM RESPONSE TEXT: The CHF is likely chronic and combined. Electronically signed by: Moody Hollins MD 10/05/2016 7:14 AM
== END 2016-09-20 14:47 | disposition home health service (06) | DRG 167 ==
LOC: HSDI 09-16 05:47 → EDSTATUS 09-16 07:30 → HCVR 09-16 17:15 → HCIN 09-16 18:47
PROVIDERS: ADMIT Thoracic Surgery (Cardiothoracic Vascular Surgery); ATTEND Thoracic Surgery (Cardiothoracic Vascular Surgery)
PROC: 0BJQ4ZZ Inspection of Pleura, Percutaneous Endoscopic Approach (ICD-10-PCS; 2016-09-16)
PROC: 0B9P40Z Drainage of Left Pleura with Drainage Device, Percutaneous Endoscopic Approach (ICD-10-PCS; 2016-09-16)
PROC: 3E0T3CZ (ICD-10-PCS; 2016-09-16)
PROC: 3E0L3GC Introduction of Other Therapeutic Substance into Pleural Cavity, Percutaneous Approach (ICD-10-PCS; principal; 2016-09-16 07:30)
DX: J90 Pleural effusion, not elsewhere classified (principal); I50.42 Chronic combined systolic (congestive) and diastolic (congestive) heart failure; E11.22 Type 2 diabetes mellitus with diabetic chronic kidney disease; I48.91 Unspecified atrial fibrillation; I12.9 Hypertensive chronic kidney disease with stage 1 through stage 4 chronic kidney disease, or unspecified chronic kidney disease; J44.9 Chronic obstructive pulmonary disease, unspecified; G47.33 Obstructive sleep apnea (adult) (pediatric); N18.3 Chronic kidney disease, stage 3 (moderate); E78.5 Hyperlipidemia, unspecified; Z79.4 Long term (current) use of insulin
CPT/HCPCS: 36415; 71010; 76937; 80048; 81001; 82948; 85027; 85610; 85730; 86850; 86900; 86901; 93005; 94640; 94664; 94667; 94668; C9290; J0131; J0171; J0282; J1100; J1644; J1815; J1885; J2250; J2370; J2405; J2710; J3010; J3370; J7040; J7050; J7613

== ENCOUNTER → 2016-09-15 | Outpatient (CLI) | payer MEDICARE ==
[~2016-09-15] MED LIST: ALBU0.63 NEB; ATOR1TAB18 PO; DOCU1CAP39 PO; DORZ2SOL EACH EYE; DORZ2SOL15 EACH EYE; FLUTI220I INH; FURO1TAB60 PO; K-TA10TA PO; LEVO125T4 PO; MONT10TA4 PO; NOVONP2 SQ; NOVORP2 SQ; PERC5TAB12 PO; VALS1TAB63 PO; VANCOMYCIN HCL 1000 MG VIAL ONE; VENTAER INH
[2016-09-15 12:26] LABS: HEMATOCRIT 36.1 % (35.0-46.0); MEAN CELL VOLUME 90.8 FL (80.0-100.0); MEAN CORPUSCULAR HEMOGLOBIN 31.4 PG (27.0-34.0); MEAN CORPUSCULAR HGB CONC 34.6 % (32.0-36.0); PLATELET COUNT 188 TH/MM3 (150-450); RED BLOOD COUNT 3.98 MIL/MM3 (4.00-5.30); RED CELL DISTRIBUTION WIDTH 15.6 % (11.6-17.2); REVIEW FLAG FINAL; WHITE BLOOD COUNT 7.9 TH/MM3 (4.0-11.0)
[2016-09-15 12:32] LABS: BACTERIA, URINE RARE /hpf; BLOOD, URINE NEG (NEG); GLUCOSE,URINE NEG (NEG); HYALINE CAST, URINE 1 /lpf (RARE); KETONE, URINE NEG (NEG); MUCUS URINE FEW /lpf (OCC); NITRITE,URINE NEG (NEG); SQUAMOUS EPITHELIAL CELL URINE 7 /hpf (0-5); URINE COLOR LIGHT-YELLOW (YELLW/STRAW)
[2016-09-15 12:38] LABS: COMMENT (UR) CULT NOT INDICATED; CULTURE IF INDICATED CULT NOT INDICATED
[2016-09-15 12:41] LABS: APTT (PATIENT) 25.4 SEC (24.3-30.1)
[2016-09-15 12:47] LABS: BICARBONATE 30.6 MEQ/L (21.0-32.0); POTASSIUM 3.7 MEQ/L (3.5-5.1)
--- NOTE | 2016-09-17 07:10 | EKG ---
Date Performed: 09/15/2016 Time Performed: 12:03:38 PTAGE: 65 years EKG: ATRIAL FIBRILLATION NONSPECIFIC ST & T-WAVE ABNORMALITY ABNORMAL ECG NO PREVIOUS TRACING DOCTOR: Garry Malagon Interpretating Date/Time 09/17/2016 07:07:51
== END ==
LOC: CPRE 11:14
PROVIDERS: ATTEND Thoracic Surgery (Cardiothoracic Vascular Surgery)
DX: Z01.810 Encounter for preprocedural cardiovascular examination (principal); Z01.812 Encounter for preprocedural laboratory examination; J90 Pleural effusion, not elsewhere classified
CPT/HCPCS: 36415; 80048; 81001; 85027; 85610; 85730; 86850; 86900; 86901; 93005; J3370

== ENCOUNTER → 2017-05-19 | Day surgery (SDC) | payer MEDICARE ==
[~2017-05-19] VITALS: Ht 162.6 cm; Wt 113.2 kg
[~2017-05-19] MED LIST changes: +ACETAMINOPHEN 325 MG TAB PO PRN; +ALBU0.63 NEB; -BUPIVACAINE LIPOSOME PF 1.3% 20 ML VIAL INFIL ONE; +CHLORHEXIDINE GLUCONATE 2 % 1 PACK (2 CLOTHS) TOPICAL PRN; +DOCU1CAP39 PO; +INSULIN HUMAN REGULAR 1,000 UNITS/10 ML VIAL ONE; +INSULIN HUMAN REGULAR 1,000 UNITS/10 ML VIAL SQ PRN; +LACTATED RINGER'S 1000 ML IV PRN; +LIDOCAINE HCL 1% PF 30 ML VIAL ONE; +LIDOCAINE HCL 2% JELLY 5 ML SYRINGE TOPICAL ONE; +METOPROLOL TARTRATE 25 MG TAB PO PRN; +NOVONP2 SQ; +PERC5TAB12 PO; +POVIDONE IODINE 5% (ANTISEPSIS KIT) 4 APPLICATIONS EACH NARE PRN; +PROPARACAINE HCL 0.5% OPHT SOLN 15 ML BTL RIGHT EYE ONE; +SODIUM CHLORID 0.9% 500 ML INJ 500 ML ONE; +SODIUM CHLORID 0.9% 500 ML IV PRN; -STERILE TALC 4 GM AEROSOL CAN I-PLEURAL ONE; +TOBRAMYCIN/DEXAMETHASONE OPTH OINT 3.5 GM TUBE ONE; -VANCOMYCIN HCL 1000 MG VIAL OTHER ONE
[2017-05-19] MEDS: PHENYLEPHRINE HCL 10% OPTH SOLN 5 ML BTL RIGHT EYE SCH ×4 (07:30→07:45)
[2017-05-19] MEDS: CYCLOPENTOLATE HCL 1% OPHT SOLN 2 ML BTL RIGHT EYE SCH ×4 (07:30→07:45)
[2017-05-19] MEDS: FLURBIPROFEN 0.03% OPHT SOLN 2.5 ML BTL RIGHT EYE SCH ×4 (07:30→07:45)
[2017-05-19] MEDS: TROPICAMIDE 1% OPHT SOLN 15 ML BTL RIGHT EYE SCH ×4 (07:30→07:45)
[2017-05-19 09:20] VITALS: BP 154/74; PULSE 84; RESP 16; TEMP 98.2; O2SAT 95
--- NOTE | 2017-05-19 09:44 | MP ---
cc: GENARO GARCIA M.D. [facility] #: [id number] DATE: 05/19/2017 PREOPERATIVE DIAGNOSIS: Visually significant cataract right eye. POSTOPERATIVE DIAGNOSIS: Visually significant cataract right eye. OPERATION: Phacoemulsification with posterior chamber lens implantation, right eye. SURGEON: Genaro Garcia MD ANESTHESIA: Topical with MAC. COMPLICATIONS: None. PROCEDURE: After informed consent was obtained, the patient was brought into the operative suite and placed on appropriate monitors by the Anesthesia Service. The patient had been given dilating drops and topical lidocaine gel in the holding area. The patient's operative eye was then prepped and draped in the usual sterile fashion. A wire lid speculum was placed. Further 2% lidocaine was then dropped on the cornea prior to beginning the procedure. A paracentesis incision was made in the peripheral cornea with a 1 mm ema keratome. The anterior chamber was filled with viscoelastic. The anterior chamber was then entered through a stepped, clear corneal incision using a sharp 3 mm ema keratome. A circular tear capsulorrhexis was then made with a bent needle cystitome. Following hydrodissection of the lens nucleus with balance saline, phacoemulsification of the nucleus was performed using a modified chopping technique. The remaining cortex was removed with irrigation/aspiration. The prior two procedures were both performed using the handpieces of the [employer] phaco unit. The capsular bag was then filled with viscoelastic. The intraocular lens was then injected into the capsular bag and positioned. The type of intraocular lens and its power can be found elsewhere in this chart. The remaining viscoelastic was then removed from the anterior chamber with the IA handpiece. The anterior chamber was reformed with balanced saline. The wound was then closed securely with stromal hydration. It was found to be watertight to an intraocular pressure of at least 30 mmHg by palpation. A small amount of balanced salt solution was then removed through the paracentesis site and the intraocular pressure at the end of the case was approximately 20 by palpation. All drapes were then removed. TobraDex ointment was then placed in the eye, which was closed beneath a semi-pressure patch dressing. The patient tolerated this procedure well and left the operating room awake and alert. The patient is to follow-up in my office in the morning. MD WERO Johnson/JAMAR /9:19 AM /9:40 AM
== END | disposition home or self-care (01) ==
LOC: PHSDC 06:44
PROVIDERS: ATTEND Optometrist Occupational Vision
DX: H25.811 Combined forms of age-related cataract, right eye (principal); H40.1134 Primary open-angle glaucoma, bilateral, indeterminate stage; E11.319 Type 2 diabetes mellitus with unspecified diabetic retinopathy without macular edema; E78.5 Hyperlipidemia, unspecified; E03.9 Hypothyroidism, unspecified; I48.91 Unspecified atrial fibrillation; I13.0 Hypertensive heart and chronic kidney disease with heart failure and stage 1 through stage 4 chronic kidney disease, or unspecified chronic kidney disease; I25.10 Atherosclerotic heart disease of native coronary artery without angina pectoris; E11.22 Type 2 diabetes mellitus with diabetic chronic kidney disease; N18.9 Chronic kidney disease, unspecified; I50.9 Heart failure, unspecified; G47.30 Sleep apnea, unspecified; Z79.4 Long term (current) use of insulin; I70.1 Atherosclerosis of renal artery; E55.9 Vitamin D deficiency, unspecified; N25.81 Secondary hyperparathyroidism of renal origin; E11.40 Type 2 diabetes mellitus with diabetic neuropathy, unspecified
CPT/HCPCS: 00142; 66984; 82948; J1815; J7040; V2632

== ENCOUNTER 2017-09-10 09:26 | Inpatient (IN) | payer MEDICARE ==
[~2017-09-10] VITALS: Ht 161.3 cm; Wt 113.2 kg
[2017-09-10] VITALS (14 sets, daily range): BP systolic 142–232; BP diastolic 67–134; PULSE 67–89; RESP 12–32; TEMP 97.7–98; O2SAT 96–100
[~2017-09-10 09:26] MED LIST changes: -ACETAMINOPHEN 325 MG TAB PO PRN; -ATOR1TAB18 PO; +ATOR80TA45 PO; -CHLORHEXIDINE GLUCONATE 2 % 1 PACK (2 CLOTHS) TOPICAL PRN; -DOCU1CAP39 PO; -INSULIN HUMAN REGULAR 1,000 UNITS/10 ML VIAL ONE; -INSULIN HUMAN REGULAR 1,000 UNITS/10 ML VIAL SQ PRN; -LACTATED RINGER'S 1000 ML IV PRN; -LIDOCAINE HCL 1% PF 30 ML VIAL ONE; -LIDOCAINE HCL 2% JELLY 5 ML SYRINGE TOPICAL ONE; -METOPROLOL TARTRATE 25 MG TAB PO PRN; -POVIDONE IODINE 5% (ANTISEPSIS KIT) 4 APPLICATIONS EACH NARE PRN; -PROPARACAINE HCL 0.5% OPHT SOLN 15 ML BTL RIGHT EYE ONE; -SODIUM CHLORID 0.9% 500 ML INJ 500 ML ONE; -SODIUM CHLORID 0.9% 500 ML IV PRN; -TOBRAMYCIN/DEXAMETHASONE OPTH OINT 3.5 GM TUBE ONE
[2017-09-10] MEDS ORDERED: SODIUM CHLOR 0.9% 1000 ML INJ 1,000 ML IV ONE (09:35)
--- NOTE | 2017-09-10 09:48 | PD ---
HPI Chief Complaint: Neuro Symptoms/ Deficits Time Seen by Provider: 09:30 Travel History International Travel<30 days: No Contact w/Intl Traveler<30days: No Traveled to known affect area: No History of Present Illness HPI The patient is a 66-year-old female who presents to the emergency department for strokelike symptoms. The patient states that approximately 9:10 AM she was getting into the car and noticed she had difficulty buckling her seatbelt. The daughter states she had a buckle her seatbelt and then noticed that the patient had a left facial droop. The patient states her symptoms began at 9 AM, she was dropping objects out of the left arm, also states she felt like her left upper extremity was clumsy and she had decreased sensation on the left side of the body. She also complains of mild right sided headache. She denies any known history of TIA or previous CVA, however, the daughter states the patient had a previous CT which revealed an old stroke. The patient does have a history of paroxysmal atrial fibrillation and is followed by her slicing machine tender, Dr. Hernandez. The patient's primary physician is Dr. Lorenzo. The patient denies any weakness the lower extremities, however, does state the left arm and left leg feel numb. She denies any dizziness or lightheadedness. She denies any chest pain, shortness breath, nausea, vomiting, or abdominal pain. The patient did take an aspirin this morning. PFSH Past Medical History Arthritis: No Asthma: Yes Autoimmune Disease: No Blood Disorders: No Anxiety: No Depression: No Heart Rhythm Problems: Yes Cancer: Yes (SKIN, UTERINE) Cardiovascular Problems: Yes (A. FIB, CAD, CHF) High Cholesterol: Yes Chemotherapy: No Chest Pain: No Congestive Heart Failure: Yes COPD: Yes Cerebrovascular Accident: No Diabetes: Yes (TYPE 2 DIABETES) Endocrine: No GERD: No Glaucoma: Yes Genitourinary: No Hepatitis: No Hiatal Hernia: No Hypertension: Yes Immune Disorder: No Implanted Vascular Access Dvce: No Kidney Stones: No Musculoskeletal: Yes (CARPAL TUNNEL SYNDROME) Neurologic: No Psychiatric: No Reproductive: No Respiratory: Yes (COPD, ASTHMA) Immunizations Current: No Migraines: No Radiation Therapy: No Renal Failure: No Seizures: No Sickle Cell Disease: No Sleep Apnea: Yes (C PAP AT NIGHT) Thyroid Disease: Yes (GRAVES ) Ulcer: No ?: Not Menopausal: Yes Past Surgical History Abdominal Surgery: No AICD: No Arteriovenous Shunt: No Body Medical Devices: STENT KIDNEY Cardiac Surgery: Yes (HEART CATH NEGATIVE) Section: Yes Ear Surgery: Yes (LEFT EYE) Endocrine Surgery: No Eye Surgery: Yes (LEFT CATARACT REMOVAL) Genitourinary Surgery: Yes (LEFT RENAL STENT) Gynecologic Surgery: Yes (C-SECT.,) Insulin Pump: No Joint Replacement: No Neurologic Surgery: No Oral Surgery: Yes (TONSILS) Pacemaker: No Thoracic Surgery: No Tonsillectomy: Yes Other Surgery: Yes (LEFT KIDNEY STENT) Social History Alcohol Use: No Tobacco Use: No Substance Use: No Allergies-Medications (Allergen,Severity, Reaction): Coded Allergies: adhesive (Verified Allergy, Severe, 05/19/17) ampicillin (Unverified Allergy, Severe, 05/19/17) egg (Unverified Allergy, Severe, Nausea/Vomiting, 05/19/17) lactose (Unverified Allergy, Severe, Nausea/Vomiting, 05/19/17) lisinopril (Verified Allergy, Severe, 05/19/17) warfarin (Unverified Allergy, Intermediate, Nausea/Vomiting, 05/19/17) niacin (Unverified Allergy, Unknown, 05/19/17) aspirin (Unverified Adverse Reaction, Mild, GI UPSET, 05/19/17) 01/07/06: PER PT, ASPIRIN IN HIGHER DOSES CAUSES GI UPSET Reported Meds & Prescriptions Reported Meds & Active Scripts Active Valsartan 40 Mg Tab 40 Mg PO BID K-Tab (Potassium Chloride) 10 Meq Tab 10 Meq PO BID Lasix (Furosemide) 40 Mg Tab 40 Mg PO BID@ Reported Percocet (Oxycodone-Acetaminophen) 5-325 mg Tab 1 Tab PO Q6H PRN Albuterol Neb (Albuterol Sulfate) 0.63 Mg/3 Ml Neb 0.63 Mg NEB Q4HR NEB PRN Novolin N Inj (Insulin Human NPH) 1,000 Unit/10 Ml Vial 20 Units SQ DAILY Novolin R Inj (Insulin Human Regular) 1,000 Unit/10 Ml Vial 1 SQ DIRECTED Sliding Scale As Directed. Flovent Hfa 12 GM Inh (Fluticasone Propionate) 220 Mcg/Act Inh 2 Puff INH BID Use daily at the same time. Ventolin Hfa 18 GM Inh (Albuterol Sulfate) 90 Mcg/Act Aer 2 Puff INH Q4-6H PRN Dorzolamide-Timolol Opth Drops 22.3-6.8 Mg/Ml Soln 1 Drop EACH EYE DAILY Dorzolamide Opth Drops (Dorzolamide HCl) 2% Soln 1 Drop EACH EYE BID Atorvastatin (Atorvastatin Calcium) 80 Mg Tab 80 Mg PO HS Montelukast (Montelukast Sodium) 10 Mg Tab 10 Mg PO DAILY Levothyroxine (Levothyroxine Sodium) 125 Mcg Tab 125 Mcg PO DAILY Review of Systems Except as stated in HPI: all other systems reviewed are Neg General / Constitutional: No: Fever Eyes: Positive: Visual changes (patient notes previous surgery on both eyes with vision changes over the last 3 weeks) HENT: Positive: Headaches, No: Lightheadedness Cardiovascular: Positive: Irregular Rhythm (history of paroxysmal atrial fibrillation), No: Chest Pain or Discomfort Respiratory: No: Shortness of Breath Gastrointestinal: No: Nausea, Vomiting, Abdominal Pain Musculoskeletal: Positive: Weakness Neurologic: Positive: Weakness, Focal Abnormalities, Headache, Paresthesia, Sensory Disturbance, No: Dizziness, Change in Mentation, Slurred Speech Physical Exam Narrative GENERAL: Awake, alert, pleasant 66-year-old female who appears her stated age is in no acute respiratory distress. SKIN: Focused skin assessment warm/dry. HEAD: Atraumatic. Normocephalic. EYES: Pupils equal and round. No injection or drainage. ENT: No nasal bleeding or discharge. Mucous membranes pink and moist. NECK: Trachea midline. No JVD. CARDIOVASCULAR: Irregularly irregular, heart rate in the 70s. RESPIRATORY: No accessory muscle use. Clear to auscultation. Breath sounds equal bilaterally. GASTROINTESTINAL: Abdomen soft, non-tender, nondistended. MUSCULOSKELETAL: No obvious deformities. No clubbing. No cyanosis. No edema. NEUROLOGICAL: Awake and alert. Slightly asymmetric smile with mild droop of the left face. EOMs are intact. Tongue is midline. Drift noted of the left arm. No drift of the lower extremities. Decreased sensation to left leg, left arm, and left face to soft touch. [id number]-[id number] is normal. Finger to nose is normal. Patient is oriented 3 and follows commands. PSYCHIATRIC: Appropriate mood and affect; insight and judgment normal. Data Data Last Documented VS Vital Signs Date Time Temp Pulse Resp B/P (MAP) Pulse Ox O2 Delivery O2 Flow Rate FiO2 09/10/17 10:01 78 155/76 (102) 09/10/17 09:55 20 100 09/10/17 09:55 Room Air 09/10/17 09:30 97.8 Orders Orders Diet Npo (09/10/17 Breakfast) Activity Bed Rest (09/10/17 ) Electrocardiogram (09/10/17 ) I-Stat Profile (09/10/17 09:35) Prothrombin Time / Inr (Pt) (09/10/17 09:35) Act Partial Throm Time (Ptt) (09/10/17 09:35) Complete Blood Count With Diff (09/10/17 09:35) Fibrinogen (09/10/17 09:35) Creatine Kinase (Cpk) (09/10/17 09:35) Troponin I (09/10/17 09:35) Ua Includes Microscopic (09/10/17 09:35) Drug Screen, Random Urine (09/10/17 09:35) Type And Screen (09/10/17 09:35) Ct Brain W/O Iv Contrast(Rout) (09/10/17 ) Chest, Single Ap (09/10/17 ) Beta Hcg (Quant/Titer) (09/10/17 09:35) Consult Neurology (09/10/17 ) Blood Glucose (09/10/17 09:35) Ecg Monitoring (09/10/17 09:35) Neuro Checks Q2HX12,Q4H (09/10/17 09:35) Nursing Bedside Swallow Assess .ONCE (09/10/17 09:35) Iv Access Insert/Monitor (09/10/17 09:35) NPO (09/10/17 09:35) Oximetry (09/10/17 09:35) Resp Oxygen Nc Stroke (09/10/17 ) Sodium Chlor 0.9% 1000 Ml Inj (Ns 1000 M (09/10/17 09:35) Cath For Specimen (09/10/17 09:35) ^ Call Pharmacy (09/10/17 10:07) Nih Stroke Scale - Nihss .ONCE (09/10/17 10:07) Urinary Catheter Insert/Apply (09/10/17 10:07) Anticoagulant Alert (09/10/17 10:07) ^ Post Infusion Restrictions (09/10/17 10:07) ^ Medication Alert (09/10/17 10:07) Vital Signs (Adult) .As directed (09/10/17 10:07) Notify Dr: Blood Pressure (09/10/17 10:07) ^ Medication Alert (09/10/17 10:07) Alteplase Bolus (Activase Bolus) (09/10/17 10:15) Alteplase Drip (Activase Drip) (09/10/17 10:15) Sodium Chloride 0.9% Inj (Ns Inj) (09/10/17 10:15) Misc Nursing Information (09/10/17 10:15) Resp Oxygen Nc Stroke (09/10/17 ) Ct Brain W/O Iv Contrast(Rout) (09/11/17 ) (Hub Use Only)Inp Phy Cons/Ref (09/10/17 ) Cta Neck W Iv Contrast W 3d (09/10/17 ) Cta Brain W Iv Contrast W 3d (09/10/17 ) Admit Order (Ed Use Only) (09/10/17 10:26) Labs Laboratory Tests Test 09/10/17 09:33 White Blood Count 10.9 TH/MM3 Red Blood Count 4.28 MIL/MM3 Hemoglobin 13.6 GM/DL Bedside Hemoglobin 12.6 G/DL Hematocrit 39.0 % Bedside Hematocrit 37.0 % Mean Corpuscular Volume 91.3 FL Mean Corpuscular Hemoglobin 31.9 PG Mean Corpuscular Hemoglobin Concent 34.9 % Red Cell Distribution Width 16.5 % Platelet Count 192 TH/MM3 Mean Platelet Volume 8.3 FL Neutrophils (%) (Auto) 62.3 % Lymphocytes (%) (Auto) 23.9 % Monocytes (%) (Auto) 10.9 % Eosinophils (%) (Auto) 2.1 % Basophils (%) (Auto) 0.8 % Neutrophils # (Auto) 6.8 TH/MM3 Lymphocytes # (Auto) 2.6 TH/MM3 Monocytes # (Auto) 1.2 TH/MM3 Eosinophils # (Auto) 0.2 TH/MM3 Basophils # (Auto) 0.1 TH/MM3 CBC Comment DIFF FINAL Differential Comment Prothrombin Time 10.0 SEC Prothromb Time International Ratio 1.0 RATIO Activated Partial Thromboplast Time 22.9 SEC Fibrinogen 367 mg/dL Bedside Sodium 140 MMOL/L Bedside Potassium 4.2 MMOL/L Bedside Chloride 100 MMOL/L Bedside Blood Urea Nitrogen 21 MG/DL Bedside Creatinine 1.3 MG/DL Bedside Glucose 84 MG/DL Total Creatine Kinase 85 U/L Troponin I 0.07 NG/ML Human Chorionic Gonadotropin, Quant 11 MIU/ML [facility] Medical Screen Exam Complete: Yes Emergency Medical Condition: Yes Medical Record Reviewed: Yes EKG Prior to Arrival: No Differential Diagnosis Differential diagnosis includes CVA, TIA, intracranial hemorrhage, intracranial tumor, complicated migraine, atypical seizure, hypertensive emergency, hypertensive urgency. Narrative Course IV was established, labs are drawn and sent, and the patient was placed on cardiac telemetry monitoring and continuous pulse oximetry monitoring. A stroke alert was called and the patient immediately went to CT. The stroke assessment was performed at 9:35 AM, her stroke scale was 4. I discussed the patient with the neurologist, Dr. Flores, and [phone]. After discussion was agreed the patient would have a CT the brain but no CTA would be performed as the patient's show scale was 4 and there is no aphasia. I received a call from the radiologist at 10 AM, CT the brain was negative. Patient's blood pressure improved to 156/76. The patient's symptoms have been stable since onset, I had a discussion regarding the possibility of TPA versus conservative management. The patient told me to ask her daughter. I then had another discussion with the patient and the patient's daughter regarding the indications and contraindications of TPA. They were uncertain whether she should have TPA, they state that she had allergic reaction to Coumadin which made her "feel weird ". Therefore, repeat call was placed to the neurologist at 11:03 AM. After discussion was agreed the patient should receive TPA. I do discussion once again with the patient and the daughter, they were agreeable to TPA. TPA was ordered at 10:07 AM. EKG was ordered and interpreted. Chest x-ray was obtained. The patient's troponin was elevated. Interestingly, the BHCG was 11 , doubt . The patient [place] be [place] [facility] I discussed the patient with Dr. Sanders, who agrees with admission. The patient's blood pressure went TPA was started was 155/76, however, her blood pressure did once again elevated to systolic that was greater than 180. Patient's blood pressure was checked on the left and right arm. Patient's blood pressure was elevated, therefore, Cardene was started with a goal for systolic blood pressure just under 180. Critical Care Narrative Aggregate critical care time was 40 minutes. Time to perform other separately billable procedures was not included in the critical care time. My time did not include minutes spent treating any other patients simultaneously or on activities that did not directly contribute to the patient's treatment. The services I provided to this patient were to treat and/or prevent clinically significant deterioration that could result in: Hemorrhage, focal neurologic deficit, . I provided critical care services requiring my management, as noted below: Chart data review, documentation time, medication orders and management, vital sign assessments/reviewing monitor data, ordering and reviewing lab tests, ordering and interpreting/reviewing x-rays and diagnostic studies, care of the patient and discussion of the patient with the admitting physicians. Stroke Alert NIHSS NIH Stroke Scale Result: 4 NIHSS Time Completed: 09:35 Procedures Interpretation(s) EKG reveals atrial fibrillation with a rate in the 70s. Nonspecific ST changes. Last Impressions Head CT 09/10/17 0000 Signed Impressions: Service Date/Time: Sunday, September 10, 2017 09:43 - CONCLUSION: Normal exam.. Marjan Machado MD Laboratory Tests Test 09/10/17 09:33 White Blood Count 10.9 TH/MM3 Red Blood Count 4.28 MIL/MM3 Hemoglobin 13.6 GM/DL Bedside Hemoglobin 12.6 G/DL Hematocrit 39.0 % Bedside Hematocrit 37.0 % Mean Corpuscular Volume 91.3 FL Mean Corpuscular Hemoglobin 31.9 PG Mean Corpuscular Hemoglobin Concent 34.9 % Red Cell Distribution Width 16.5 % Platelet Count 192 TH/MM3 Mean Platelet Volume 8.3 FL Neutrophils (%) (Auto) 62.3 % Lymphocytes (%) (Auto) 23.9 % Monocytes (%) (Auto) 10.9 % Eosinophils (%) (Auto) 2.1 % Basophils (%) (Auto) 0.8 % Neutrophils # (Auto) 6.8 TH/MM3 Lymphocytes # (Auto) 2.6 TH/MM3 Monocytes # (Auto) 1.2 TH/MM3 Eosinophils # (Auto) 0.2 TH/MM3 Basophils # (Auto) 0.1 TH/MM3 CBC Comment DIFF FINAL Differential Comment Prothrombin Time 10.0 SEC Prothromb Time International Ratio 1.0 RATIO Activated Partial Thromboplast Time 22.9 SEC Fibrinogen 367 mg/dL Bedside Sodium 140 MMOL/L Bedside Potassium 4.2 MMOL/L Bedside Chloride 100 MMOL/L Bedside Blood Urea Nitrogen 21 MG/DL Bedside Creatinine 1.3 MG/DL Bedside Glucose 84 MG/DL Total Creatine Kinase 85 U/L Troponin I 0.07 NG/ML Human Chorionic Gonadotropin, Quant 11 MIU/ML Physician Communication Physician Communication The on-call instructional systems specialist was paged for admission. I discussed the patient with Dr. Sanders who agrees with admission. Diagnosis Diagnosis: Primary Impression: CVA (cerebral vascular accident) Qualified Codes: I63.9 - Cerebral infarction, unspecified Additional Impressions: Atrial fibrillation Qualified Codes: I48.91 - Unspecified atrial fibrillation DM (diabetes mellitus) Qualified Codes: E13.9 - Other specified diabetes mellitus without complications; Z79.4 - staff nurse anesthetist (current) use of insulin Admitting Physician Requests: Admit Condition: Stable Rj Meehan MD Sep 10, 2017 09:47
[2017-09-10 09:54] LABS: AUTOMATED NEUTROPHIL # 6.8 TH/MM3 (1.8-7.7); BASOPHIL # 0.1 TH/MM3 (0-0.2); BASOPHIL % 0.8 % (0.0-2.0); EOSINOPHIL # 0.2 TH/MM3 (0-0.4); EOSINOPHIL % 2.1 % (0.0-4.0); HEMOGLOBIN 13.6 GM/DL (11.6-15.3); LYMPH % 23.9 % (9.0-44.0); LYMPHOCYTE # 2.6 TH/MM3 (1.0-4.8); MEAN CELL VOLUME 91.3 FL (80.0-100.0); MEAN CORPUSCULAR HEMOGLOBIN 31.9 PG (27.0-34.0); MEAN CORPUSCULAR HGB CONC 34.9 % (32.0-36.0); MEAN PLATELET VOLUME 8.3 FL (7.0-11.0); MONO % 10.9 % (0.0-8.0); MONOCYTE # 1.2 TH/MM3 (0-0.9); NEUT % 62.3 % (16.0-70.0); PLATELET COUNT 192 TH/MM3 (150-450); RED BLOOD COUNT 4.28 MIL/MM3 (4.00-5.30); RED CELL DISTRIBUTION WIDTH 16.5 % (11.6-17.2); WHITE BLOOD COUNT 10.9 TH/MM3 (4.0-11.0)
--- NOTE | 2017-09-10 10:02 | RADRPT ---
EXAM DATE/TIME: 09/10/2017 09:43 [facility] COMPARISON: CT BRAIN W/O CONTRAST, May 04, 2016, 10:41. INDICATIONS : Stroke alert; left arm weakness and right side headache. RADIATION DOSE: 39.19 CTDIvol (mGy) This report was called by Dr Machado to Dr Meehan> at 0952 MEDICAL HISTORY : Cardiovascular disease. Hypertension. Diabetes mellitus type 2.Uterine cancer. SURGICAL HISTORY : None. ENCOUNTER: Initial ACUITY: 1 day PAIN SCALE: 3/10 LOCATION: Right cranial TECHNIQUE: Multiple contiguous axial images were obtained of the head. Using automated exposure control and adj ustment of the mA and/or kV according to patient size, radiation dose was kept as low as reasonably a chievable to obtain optimal diagnostic quality images. DICOM format image data is available electro nically for review and comparison. FINDINGS: CEREBRUM: The ventricles are normal for age. No evidence of midline shift, mass lesion, hemorrhage or acute in farction. No extra-axial fluid collections are seen. POSTERIOR FOSSA: The cerebellum and brainstem are intact. The 4th ventricle is midline. The cerebellopontine angle i s unremarkable. EXTRACRANIAL: The visualized portion of the orbits is intact. SKULL: The calvaria is intact. No evidence of skull fracture. CONCLUSION: Normal exam.. Marjan Machado MD on September 10, 2017 at 9:55 Board Certified Radiologist. This report was verified electronically.
[2017-09-10] MEDS ORDERED: SODIUM CHLORIDE 0.9% 50 ML BAG IVF ONE (10:15)
[2017-09-10] MEDS ORDERED: ALTEPLASE BOLUS 9 MG/9 ML SYR IV ONE (10:15)
[2017-09-10] MEDS ORDERED: MISCELLANEOUS NURSING INFORMATION XX PRN (10:15)
[2017-09-10] MEDS ORDERED: ALTEPLASE DRIP 81 MG in SYRINGE/BAG 1 EA IV ONE (10:15)
[2017-09-10 10:22] LABS: TROPONIN I 0.07 NG/ML (0.02-0.05)
[2017-09-10] MEDS ORDERED: POTASSIUM CHLOR 20 MEQ PREMIX 100 ML IV PRN ×2 (10:30)
[2017-09-10] MEDS ORDERED: POTASSIUM CHLOR 40 MEQ PREMIX 100 ML IV PRN ×2 (10:30)
[2017-09-10] MEDS ORDERED: POTASSIUM PHOSPHATE INJ 30 MMOL in SODIUM CHLOR 0.9% 250 ML INJ 250 ML IV PRN (10:30)
[2017-09-10] MEDS ORDERED: POTASSIUM CHLORIDE 25 MEQ EFFERVESCENT TAB PO PRN (10:30)
[2017-09-10] MEDS ORDERED: POTASSIUM PHOSPHATE MONOBASIC 500 MG TAB PO/TUBE PRN (10:30)
[2017-09-10] MEDS ORDERED: GLUCAGON 1 MG/ML VIAL OTHER PRN (10:30)
[2017-09-10] MEDS ORDERED: POTASSIUM PHOSPHATE MONOBASIC 500 MG TAB PO PRN (10:30)
[2017-09-10] MEDS ORDERED: DEXTROSE 50% IN WATER 50 ML VIAL(D50) IV PUSH PRN ×3 (10:30)
[2017-09-10] MEDS ORDERED: SODIUM PHOSPHATE INJ 30 MMOL in SODIUM CHLOR 0.9% 250 ML INJ 240 ML IV PRN (10:30)
[2017-09-10] MEDS ORDERED: MAGNESIUM OXIDE 400 MG TAB PO PRN (10:30)
[2017-09-10] MEDS ORDERED: MAGNESIUM SULFATE INJ 4 GM in SODIUM CHLORIDE 0.9% INJ 92 ML IV PRN (10:30)
[2017-09-10] MEDS ORDERED: MAGNESIUM SULFATE INJ 2 GM in SODIUM CHLORIDE 0.9% INJ 96 ML IV PRN (10:30)
[2017-09-10] MEDS ORDERED: niCARdipine INJ 25 MG in SODIUM CHLOR 0.9% 250 ML INJ 240 ML IV ONE (10:45)
--- NOTE | 2017-09-10 10:50 | RADRPT ---
EXAM DATE/TIME: 09/10/2017 10:02 [facility] COMPARISON: CHEST SINGLE AP, September 19, 2016, 3:29. INDICATIONS : Stroke alert; left arm weakness and right side headache. MEDICAL HISTORY : Cardiovascular disease. Hypertension. Diabetes mellitus type 2.Uterine SURGICAL HISTORY : None. ENCOUNTER: Initial ACUITY: 1 day PAIN SCORE: 0/10 LOCATION: Bilateral chest FINDINGS: A single view of the chest demonstrates the lungs to be symmetrically aerated without evidence of mas s, infiltrate or effusion. The cardiomediastinal contours are unremarkable. Osseous structures are intact. CONCLUSION: No evidence of acute cardiopulmonary disease. Marjan Machado MD on September 10, 2017 at 10:47 Board Certified Radiologist. This report was verified electronically.
[2017-09-10] MEDS ORDERED: IOHEXOL 350 MG/ML 10 ML VIAL (for RAD DIAG) IVCONTRAST ONE (11:03)
[2017-09-10 11:23] LABS: BILIRUBIN, URINE NEG (NEG); BLOOD, URINE NEG (NEG); GLUCOSE,URINE NEG (NEG); KETONE, URINE NEG (NEG); MUCUS URINE FEW /lpf (OCC); NITRITE,URINE NEG (NEG); PH, URINE 7.5 (5.0-8.5); SQUAMOUS EPITHELIAL CELL URINE 1 /hpf (0-5); URINE COLOR YELLOW (YELLW/STRAW); URINE LEUKOCYTE ESTERASE NEG (NEG)
--- NOTE | 2017-09-10 11:37 | RADRPT ---
EXAM DATE/TIME: 09/10/2017 11:03 [facility] COMPARISON: CT BRAIN W/O CONTRAST, September 10, 2017, 9:43. INDICATIONS : Stroke alert; syncope today. IV CONTRAST: 85 cc Omnipaque 350 (iohexol) IV ; Cumulative dose for multiple exams. RADIATION DOSE: 28.49 CTDIvol (mGy) ; Combined studies MEDICAL HISTORY : Congestive hearrt failure. uterine cancer, skin cancer, diabetes, hypertension SURGICAL HISTORY : None. ENCOUNTER: Initial ACUITY: 1 day PAIN SCALE: Non-responsive LOCATION: Bilateral head TECHNIQUE: Volumetric scanning was performed using a multi-row detector CT scanner. The data was post processed with a variety of visualization algorithms including full volume maximum intensity projection, multi -planar sliding thin slab reformation, curved planar reformation, and surface rendering techniques. Using automated exposure control and adjustment of the mA and/or kV according to patient size, radiat ion dose was kept as low as reasonably achievable to obtain optimal diagnostic quality images. DICO M format image data is available electronically for review and comparison. FINDINGS: There is excellent visualization of the major intracranial arteries out to the second-order branch ve ssels. There is no evidence for aneurysm, vessel truncation or stenosis, and no evidence for vascula r malformation. The left vertebral artery is significantly smaller in caliber than the right. However, the vertebral artery appears patent. There is extensive atherosclerosis involving bilateral carotid bulbs. . CONCLUSION: No evidence of aneurysm or abnormality within the intracranial arteries. The left vertebral artery is decreased in size as compared to the right but appears patent. Atherosclerosis is identified within the imaged carotid bulbs.. Marjan Machado MD on September 10, 2017 at 11:30 Board Certified Radiologist. This report was verified electronically.
[2017-09-10] MEDS: INSULIN NovoLIN REGULAR SUPPLEMENTAL SCALE SQ SCH ×2 (12:00→21:00)
--- NOTE | 2017-09-10 12:29 | RADRPT ---
EXAM DATE/TIME: 09/10/2017 11:03 [facility] COMPARISON: No previous studies available for comparison. INDICATIONS : Syncope today. IV CONTRAST: 85 cc Omnipaque 350 (iohexol) IV ; Cumulative dose for multiple exams. RADIATION DOSE: 28.49 CTDIvol (mGy) ; Combined studies MEDICAL HISTORY : Congestive hearrt failure. uterine cancer, skin cancer, diabetes, hypertension SURGICAL HISTORY : None. ENCOUNTER: Initial ACUITY: 1 day PAIN SCALE: Non-responsive LOCATION: Bilateral neck Elevated flow velocities and ICA/CCA ratios have been found to correlate with increased degrees of vessel stenosis, calculated as percentage of diameter relative to a normal segment of distal ICA/CCA. TECHNIQUE: Volumetric scanning was performed using a multirow detector CT scanner. The data was post processed with a variety of visualization algorithms including full-volume maximum intensity projection, multip lanar sliding thin-slab reformation, curved-planar reformation, and surface-rendering techniques. Us ing automated exposure control and adjustment of the mA and/or kV according to patient size, radiatio n dose was kept as low as reasonably achievable to obtain optimal diagnostic quality images. DICOM f ormat image data is available electronically for review and comparison. FINDINGS: AORTIC ARCH: There is a three-vessel origin of the great vessels from the aorta. No evidence of ostial narrowing. RIGHT CAROTID: The common carotid artery is intact. The right carotid bulb demonstrates extensive calcifications wit h significant reduction of the internal carotid artery lumen to approximately 50% on the reconstitute d long axis view. The external carotid artery is intact. LEFT CAROTID: The common carotid artery is intact there is extensive ossification identified within the carotid bul b with greater than 50% luminal reduction identified on both the axial as well as the reconstituted l ongitudinal view of the internal carotid artery. The external carotid artery is intact. VERTEBRALS: The vertebral arteries have a symmetric diameter. No stenotic lesions are seen. CONCLUSION: Bilateral significant carotid artery atherosclerosis with narrowing of the proximal right and left in ternal carotid arteries. The left appears greater than 50% narrowed and the right appears approximate ly 50% narrowed.. Marjan Machado MD on September 10, 2017 at 12:18 Board Certified Radiologist. This report was verified electronically.
--- NOTE | 2017-09-10 13:07 | HHI.HP ---
HPI Service Critical Care Medicine Primary Care Physician Margie Martinez MD Admission Diagnosis acute CVA, atrial fibrillation, diabetes Diagnosis: Chief Complaint: Left arm weakness and slurred speach Travel History International Travel<30 Days: No Contact w/Intl Traveler <30 Da: No Traveled to Known Affected Are: No History of Present Illness 66 y/o lady with h/o Afib not on anticoagulation, HTN, HLD, morbid obesity, hypothyroidism, LIBBY/OHS, ? COPD now presents to ED c/o left arm weakness associated with slurring of speech. Patient's daughter states that the patient had difficulty buckling her seatbelt and then also noticed that the patient had a left facial droop. The patient stated that her symptoms began around 9 AM, she was dropping objects out of the left arm, also states she felt like her left upper extremity was clumsy and she had decreased sensation on the left side of the body. In addition, she also complains of mild right sided headache. No h/o previous CVA but daughter states that after a routine CT the patient had , she was told that she had a stroke in her past. No dizziness or lightheadedness, no chest pain, shortness breath, nausea, vomiting, or abdominal pain. On ED arrival stroke code was called, CT head was negative for brain and ED physician after consulting neuro gave tpa. [facility] was consulted for ICU admission. Of note, patient's BP was high requiring cardene drip, currently at 4. Patient was seen in ED, patient feels better, speech is improved, so is the weakness. Review of Systems Constitutional: DENIES: Fatigue, Fever, Chills, Dizziness Endocrine: DENIES: Heat/cold intolerance, Polydipsia, Polyuria, Polyphagia Eyes: DENIES: Blurred vision, Diplopia, Vision loss Ears, nose, mouth, throat: DENIES: Tinnitus, Hearing loss, Vertigo, Throat pain Respiratory: COMPLAINS OF: Apneas, Snoring, DENIES: Shortness of breath Cardiovascular: DENIES: Chest pain, Palpitations, Syncope, Dyspnea on Exertion Gastrointestinal: DENIES: Abdominal pain, Black stools, Bloody stools, Constipation, Diarrhea, Nausea, Vomiting Musculoskeletal: DENIES: Joint pain, Stiffness, Joint Swelling Hematologic/lymphatic: COMPLAINS OF: Bruising Neurologic: COMPLAINS OF: Localized weakness, DENIES: Abnormal gait, Headache, Seizures Psychiatric: DENIES: Depression, Hallucinations, Agitation Past Family Social History Allergies: Coded Allergies: adhesive (Verified Allergy, Severe, 05/19/17) ampicillin (Unverified Allergy, Severe, 05/19/17) egg (Unverified Allergy, Severe, Nausea/Vomiting, 05/19/17) lactose (Unverified Allergy, Severe, Nausea/Vomiting, 05/19/17) lisinopril (Verified Allergy, Severe, 05/19/17) warfarin (Unverified Allergy, Intermediate, Nausea/Vomiting, 05/19/17) niacin (Unverified Allergy, Unknown, 05/19/17) aspirin (Unverified Adverse Reaction, Mild, GI UPSET, 05/19/17) 01/07/06: PER PT, ASPIRIN IN HIGHER DOSES CAUSES GI UPSET Past Medical History Afib not on anticoagulation, HTN, HLD, morbid obesity, hypothyroidism, LIBBY/OHS, ? COPD, carpal tunnel sdr Past Surgical History cataract surgery, tonsillectomy Reported Medications Reported Meds & Active Scripts Active Valsartan 40 Mg Tab 40 Mg PO BID K-Tab (Potassium Chloride) 10 Meq Tab 10 Meq PO BID Lasix (Furosemide) 40 Mg Tab 40 Mg PO BID@ Reported Percocet (Oxycodone-Acetaminophen) 5-325 mg Tab 1 Tab PO Q6H PRN Albuterol Neb (Albuterol Sulfate) 0.63 Mg/3 Ml Neb 0.63 Mg NEB Q4HR NEB PRN Novolin N Inj (Insulin Human NPH) 1,000 Unit/10 Ml Vial 20 Units SQ DAILY Novolin R Inj (Insulin Human Regular) 1,000 Unit/10 Ml Vial 1 SQ DIRECTED Sliding Scale As Directed. Flovent Hfa 12 GM Inh (Fluticasone Propionate) 220 Mcg/Act Inh 2 Puff INH BID Use daily at the same time. Ventolin Hfa 18 GM Inh (Albuterol Sulfate) 90 Mcg/Act Aer 2 Puff INH Q4-6H PRN Dorzolamide-Timolol Opth Drops 22.3-6.8 Mg/Ml Soln 1 Drop EACH EYE DAILY Dorzolamide Opth Drops (Dorzolamide HCl) 2% Soln 1 Drop EACH EYE BID Atorvastatin (Atorvastatin Calcium) 80 Mg Tab 80 Mg PO HS Montelukast (Montelukast Sodium) 10 Mg Tab 10 Mg PO DAILY Levothyroxine (Levothyroxine Sodium) 125 Mcg Tab 125 Mcg PO DAILY Active Ordered Medications Current Medications Medications (Trade) Dose Ordered Sig/Anthony Route Start Time Stop Time Status Last Admin Sodium Chloride 1,000 ml @ 70 mls/hr [id number] ONCE IV 09/10/17 09:35 09/10/17 23:52 09/10/17 10:45 Miscellaneous Information No Heparin, Warfarin, Aspir... UNSCH PRN XX 09/10/17 10:15 09/11/17 10:14 Potassium Chloride 100 ml @ 50 mls/hr Q2H PRN IV 09/10/17 10:30 Potassium Chloride 100 ml @ 50 mls/hr Q2H PRN IV 09/10/17 10:30 (K-Lyte Cl Eff) 50 meq UNSCH PRN PO 09/10/17 10:30 Potassium Chloride 100 ml @ 25 mls/hr UNSCH PRN IV 09/10/17 10:30 Potassium Chloride 100 ml @ 50 mls/hr Q2H PRN IV 09/10/17 10:30 Magnesium Sulfate 4 gm/Sodium Chloride 100 ml @ 50 mls/hr UNSCH PRN IV 09/10/17 10:30 (Mag-Ox) 800 mg UNSCH PRN PO 09/10/17 10:30 Magnesium Sulfate 2 gm/Sodium Chloride 100 ml @ 50 mls/hr UNSCH PRN IV 09/10/17 10:30 (K-Phos) 2,000 mg Q4H PRN PO 09/10/17 10:30 Sodium Phosphate 30 mmol/Sodium Chloride 250 ml @ 42 mls/hr UNSCH PRN IV 09/10/17 10:30 (K-Phos) 2,000 mg UNSCH PRN PO/TUBE 09/10/17 10:30 Potassium Phosphate 30 mmol/ Sodium Chloride 260 ml @ 42 mls/hr UNSCH PRN IV 09/10/17 10:30 (D50w (Vial) Inj) 50 ml UNSCH PRN IV PUSH 09/10/17 10:30 (Glucagon Inj) 1 mg UNSCH PRN OTHER 09/10/17 10:30 (NovoLIN R SUPPLEMENTAL SCALE) 1 ACHS SLIDING SCALE SQ 09/10/17 12:00 (Lipitor) 80 mg HS PO 09/10/17 21:00 (Synthroid) 125 mcg DAILY@0600 PO 09/11/17 06:00 (Singulair) 10 mg DAILY PO 09/11/17 09:00 (Duoneb Neb) 1 ampule Q6HR WHILE AWAKE NEB NEB 09/10/17 14:00 Family History non-contributory Social History no tobacco, no EtOH, no drugs Physical Exam Vital Signs Vital Signs Date Time Temp Pulse Resp B/P (MAP) Pulse Ox O2 Delivery O2 Flow Rate FiO2 09/10/17 11:32 71 18 181/80 (113) 97 Room Air 09/10/17 11:31 71 181/80 09/10/17 11:28 100 Room Air 09/10/17 11:24 70 194/85 (121) Room Air 09/10/17 11:23 88 194/89 09/10/17 10:01 78 155/76 (102) 09/10/17 09:55 78 20 179/134 (149) 100 09/10/17 09:55 100 Room Air 09/10/17 09:51 100 Room Air 09/10/17 09:30 97.8 89 19 232/110 (150) 97 Physical Exam General - elderly lady, obese, awake, ill appearing HEENT - pupils equal, reactive, sclerae anicteric, neck supple, no nuchal rigidity, neck veins not distended, no carotid bruit, poor dentition, MMM, no thrush CV - regular S1, S2, no murmurs, distant Chest - clear b/l, decreased breath sounds at bases, no wheezes Abdomen - soft, obese, non-tender, BS present, no hepatomegaly, no splenomegaly Skin - no rashes, no cyanosis Extremities - warm and well perfused, no edema, + peripheral pulses, no clubbing Neuro - awake, alert and oriented, motor 5/5 over all extremities except left upper 4/5, sensation is intact, pupils are equal and reactive, EOMI, tongue midline, shrugs shoulders, slight left facial asymmetry Laboratory Laboratory Tests Test 09/10/17 09:33 09/10/17 10:40 White Blood Count 10.9 Red Blood Count 4.28 Hemoglobin 13.6 Bedside Hemoglobin 12.6 Hematocrit 39.0 Bedside Hematocrit 37.0 Mean Corpuscular Volume 91.3 Mean Corpuscular Hemoglobin 31.9 Mean Corpuscular Hemoglobin Concent 34.9 Red Cell Distribution Width 16.5 Platelet Count 192 Mean Platelet Volume 8.3 Neutrophils (%) (Auto) 62.3 Lymphocytes (%) (Auto) 23.9 Monocytes (%) (Auto) 10.9 Eosinophils (%) (Auto) 2.1 Basophils (%) (Auto) 0.8 Neutrophils # (Auto) 6.8 Lymphocytes # (Auto) 2.6 Monocytes # (Auto) 1.2 Eosinophils # (Auto) 0.2 Basophils # (Auto) 0.1 CBC Comment DIFF FINAL Differential Comment Prothrombin Time 10.0 Prothromb Time International Ratio 1.0 Activated Partial Thromboplast Time 22.9 Fibrinogen 367 Bedside Sodium 140 Bedside Potassium 4.2 Bedside Chloride 100 Bedside Blood Urea Nitrogen 21 Bedside Creatinine 1.3 Bedside Glucose 84 Total Creatine Kinase 85 Troponin I 0.07 Human Chorionic Gonadotropin, Quant 11 Urine Color YELLOW Urine Turbidity CLEAR Urine pH 7.5 Urine Specific [place] 1.009 Urine Protein 30 Urine Glucose (UA) NEG Urine Ketones NEG Urine Occult Blood NEG Urine Nitrite NEG Urine Bilirubin NEG Urine Urobilinogen LESS THAN 2.0 Urine Leukocyte Esterase NEG Urine RBC LESS THAN 1 Urine Squamous Epithelial Cells 1 Urine Mucus FEW Urine Opiates Screen NEG Urine Barbiturates Screen NEG Urine Amphetamines Screen NEG Urine Benzodiazepines Screen NEG Urine Cocaine Screen NEG Urine Cannabinoids Screen NEG Result Diagram: 09/10/17 0933 Caprini VTE Risk Assessment Caprini VTE Risk Assessment: Mod/High Risk (score >= 2) VTE Pharm Contraindication: High risk for bleeding Caprini Risk Assessment Model Point Value = 1 Point Value = 2 Point Value = 3 Point Value = 5 Age 41-60 Minor surgery BMI > 25 kg/m2 Swollen legs Varicose veins or History of unexplained or recurrent spontaneous Oral contraceptives or hormone replacement Sepsis (< 1 month) Serious lung disease, including pneumonia (< 1 month) Abnormal pulmonary function Acute myocardial infarction Congestive heart failure (< 1 month) History of inflammatory bowel disease Medical patient at bed rest Age 61-74 Arthroscopic surgery Major open surgery (> 45 min) Laparoscopic surgery (> 45 min) Malignancy Confined to bed (> 72 hours) Immobilizing plaster cast Central venous access Age >= 75 History of VTE Family history of VTE Factor V Leiden Prothrombin [id number] Lupus anticoagulant Anticardiolipin antibodies Elevated serum homocysteine Heparin-induced thrombocytopenia Other congenital or acquired thrombophilia Stroke (< 1 month) Elective arthroplasty Hip, pelvis, or leg fracture Acute spinal cord injury (< 1 month) Prophylaxis Regimen Total Risk Factor Score Risk Level Prophylaxis Regimen 0-1 Low Early ambulation 2 Moderate Order ONE of the following: *Sequential Compression Device (SCD) *Heparin 5000 units SQ BID 3-4 Higher Order ONE of the following medications: *Heparin 5000 units SQ TID *Enoxaparin/Lovenox 40 mg SQ daily (WT < 150 kg, CrCl > 30 mL/min) *Enoxaparin/Lovenox 30 mg SQ daily (WT < 150 kg, CrCl > 10-29 mL/min) *Enoxaparin/Lovenox 30 mg SQ BID (WT < 150 kg, CrCl > 30 mL/min) AND/OR *Sequential Compression Device (SCD) 5 or more Highest Order ONE of the following medications: *Heparin 5000 units SQ TID (Preferred with Epidurals) *Enoxaparin/Lovenox 40 mg SQ daily (WT < 150 kg, CrCl > 30 mL/min) *Enoxaparin/Lovenox 30 mg SQ daily (WT < 150 kg, CrCl > 10-29 mL/min) *Enoxaparin/Lovenox 30 mg SQ BID (WT < 150 kg, CrCl > 30 mL/min) AND *Sequential Compression Device (SCD) Assessment and Plan Assessment and Plan 1. Acute ischemic CVA s/p tpa, infusion completed at 11:20 AM 2. Uncontrolled HTN - required cardene now off 3. Afib was not on anticoagulation 4. Bilateral carotid stenosis 5. DM 6. Obesity 7. HLD 8. ? COPD 9. LIBBY/OHS 10. Hypothyroidism 1. Admit to ICU 2. Post tpa protocol 3. CT head in 24 hours and stat if any acute change in mental status 4. Check lipid profile 5. Neuro checks 6. ECHO 7. Swallow eval 8. Start antiplatelet 24 hours post tpa - will ask neurology 9. Keep SBP < 180, DBP < 105 10. Glycemic control 11. Bronchodilators 12. Home CPAP at night 13. Levothryoxine 14. GI prophylaxis I spent 32 minutes of critical care time managing BP, reviewing data, ordering labs, discussing with patient and daughter, reassessing patient multiple times. Jorge Cain MD Sep 10, 2017 13:07
[2017-09-10] MEDS: RESP: ALBUTEROL 2.5 MG/IPRATROPIUM 0.5 MG NEB (SCH) NEB ×2 (14:00→21:05)
--- NOTE | 2017-09-10 14:44 | MB ---
cc: ROSEY RYAN M.D. DATE OF CONSULTATION: 09/10/2017. REASON FOR CONSULTATION: HISTORY OF PRESENT ILLNESS: She is a 66-year-old seen as a stroke alert. Discussed with Dr. Meehan on a couple of occasions. She had the onset of symptoms around 9:00 a.m. when she got in the car and she had difficulty using the left hand to buckle her seatbelt. The daughter observed left facial weakness and there was some apparent slurring. She was brought to the hospital and she was noted to have very mild left hemiparesis. Her NIH stroke scale was 4. She has been complaining of headache and her blood pressure was around 230. The CT brain was negative and her blood pressure was down to 150. On my second conversation with Dr. Meehan, we felt the patient was a good candidate for tPA and the family agreed. I saw the patient about a half hour ago and she was receiving the tPA. The patient has a history of atrial fibrillation and she has not been taking any blood thinners or even aspirin for the past year. She has used some occasional Excedrin for headaches. She apparently took Coumadin in the past but had some adverse response to this. She has a history of sleep apnea and she is on C-PAP. History of diabetes mellitus type 2 and carpal tunnel syndrome. NEUROLOGICAL EXAMINATION: The neurologic exam showed the patient to be awake, alert, laying flat. She is significantly overweight. Ocular movements were full. Visual miner full. There is slight left facial weakness and there is slight left distal upper extremity weakness. The sensory exam was normal. Reflexes were trace versus absent throughout. Plantar responses flexor. She raised the lower extremities and opposed some resistance without any distinct motor deficits. Her speech was clear at the time I saw the patient. ASSESSMENT: 1. Left hemiparetic syndrome. CT brain negative. CTA study is pending. We felt the patient was a good candidate for TPA and her initial NIH stroke scale was 4. TPA was being given when I saw her about a half hour ago. Discussed with the patient and the daughter at bedside. 2. Atrial fibrillation. At this point, the patient will benefit from long-term anticoagulation. We will probably start this 24 hours after tPA is given. Monitor or neurological course with bolus tPA protocol. I will follow this patient with you. Thank you for asking us to assist in her care. MD JAMES Tate/LISA /11:36 AM /2:16 PM
[2017-09-10 15:45] LABS: CHOLESTEROL/ HDL RATIO 2.21 RATIO; HDL CHOLESTEROL 60.9 MG/DL (40.0-60.0)
[2017-09-10] MEDS ORDERED: niCARdipine INJ 25 MG in SODIUM CHLOR 0.9% 250 ML INJ 240 ML IV PRN (18:30)
[2017-09-10] MEDS: ATORVASTATIN 80 MG TAB PO SCH (19:59)
[2017-09-11] VITALS (14 sets, daily range): BP systolic 142–178; BP diastolic 60–81; PULSE 63–84; RESP 13–35; TEMP 97.7–98.8; O2SAT 93–100
[2017-09-11] MEDS: LEVOTHYROXINE SODIUM 125 MCG TAB PO SCH (05:11)
[2017-09-11] MEDS: INSULIN NovoLIN REGULAR SUPPLEMENTAL SCALE SQ SCH ×4 (08:00→20:31)
[2017-09-11] MEDS: RESP: ALBUTEROL 2.5 MG/IPRATROPIUM 0.5 MG NEB (SCH) NEB ×3 (08:00→20:58)
[2017-09-11] MEDS: MONTELUKAST SODIUM 10 MG TAB PO SCH (08:51)
--- NOTE | 2017-09-11 12:09 | RADRPT ---
EXAM DATE/TIME: 09/11/2017 11:13 [facility] COMPARISON: CT BRAIN W/O CONTRAST, September 10, 2017, 9:43. INDICATIONS : Post TPA. RADIATION DOSE: 49.03 CTDIvol (mGy) MEDICAL HISTORY : Congestive heart failure. diabetes, skin cancer, uterine cancer SURGICAL HISTORY : None. ENCOUNTER: Initial ACUITY: 1 day PAIN SCALE: 0/10 LOCATION: Bilateral head TECHNIQUE: Multiple contiguous axial images were obtained of the head. Using automated exposure control and adj ustment of the mA and/or kV according to patient size, radiation dose was kept as low as reasonably a chievable to obtain optimal diagnostic quality images. DICOM format image data is available electro nically for review and comparison. FINDINGS: CEREBRUM: The ventricles are normal for age. No evidence of midline shift, mass lesion, hemorrhage or acute in farction. No extra-axial fluid collections are seen. POSTERIOR FOSSA: The cerebellum and brainstem are intact. The 4th ventricle is midline. The cerebellopontine angle i s unremarkable. EXTRACRANIAL: The visualized portion of the orbits is intact. SKULL: The calvaria is intact. No evidence of skull fracture. CONCLUSION: No acute disease. Marjan Machado MD on September 11, 2017 at 12:04 Board Certified Radiologist. This report was verified electronically.
--- NOTE | 2017-09-11 12:27 | EKG ---
Date Performed: 09/10/2017 Time Performed: 10:00:54 PTAGE: 66 years EKG: ATRIAL FIBRILLATION NONSPECIFIC ST & T-WAVE ABNORMALITY ABNORMAL RHYTHM ECG PREVIOUS TRACING : 09/15/2016 12.03 Since the prior tracing, there has been no significant jones DOCTOR: Loi Alfred Interpretating Date/Time 09/11/2017 12:24:35
[2017-09-11] MEDS ORDERED: DEXTROSE 50% IN WATER 50 ML VIAL(D50) IV PUSH PRN (12:30)
[2017-09-11] MEDS ORDERED: GLUCAGON 1 MG/ML VIAL OTHER PRN (12:30)
--- NOTE | 2017-09-11 13:00 | HHI.CCPN ---
Subjective Remarks/Hospital Course 09/10: 66 y/o lady with h/o Afib not on anticoagulation, HTN, HLD, morbid obesity , hypothyroidism, LIBBY/OHS, ? COPD now presents to ED c/o left arm weakness associated with slurring of speech. Patient's daughter states that the patient had difficulty buckling her seatbelt and then also noticed that the patient had a left facial droop. The patient stated that her symptoms began around 9 AM, she was dropping objects out of the left arm, also states she felt like her left upper extremity was clumsy and she had decreased sensation on the left side of the body. In addition, she also complains of mild right sided headache. No h/o previous CVA but daughter states that after a routine CT the patient had , she was told that she had a stroke in her past. No dizziness or lightheadedness, no chest pain, shortness breath, nausea, vomiting, or abdominal pain. On ED arrival stroke code was called, CT head was negative for brain and ED physician after consulting neuro gave tpa. [facility] was consulted for ICU admission. Of note, patient's BP was high requiring cardene drip, currently at 4. Patient was seen in ED, patient feels better, speech is improved, so is the weakness. 09/11: Patient did well over the night. Feels better, good spirits, no JORGENSEN, weakness is improved as well. Repeat CT head this AM - unremarkable. Off cardene. Objective Vital Signs Date Time Temp Pulse Resp B/P (MAP) Pulse Ox O2 Delivery O2 Flow Rate FiO2 09/11/17 10:00 76 09/11/17 08:00 98.1 17 158/67 (97) 93 09/11/17 07:00 Nasal Cannula 2.00 Intake and Output 09/11/17 09/11/17 09/12/17 08:00 16:00 00:00 Intake Total 120 ml Output Total 850 ml Balance -730 ml Result Diagram: 09/10/17 0933 Imaging Last Impressions Head CT 09/11/17 1120 Signed Impressions: Service Date/Time: Monday, September 11, 2017 11:13 - CONCLUSION: No acute disease. Marjan Machado MD Neck CTA 09/10/17 0000 Signed Impressions: Service Date/Time: Sunday, September 10, 2017 11:03 - CONCLUSION: Bilateral significant carotid artery atherosclerosis with narrowing of the proximal right and left internal carotid arteries. The left appears greater than 50%% narrowed and the right appears approximately 50%% narrowed.. Marjan Machado MD Head CTA 09/10/17 0000 Signed Impressions: Service Date/Time: Sunday, September 10, 2017 11:03 - CONCLUSION: No evidence of aneurysm or abnormality within the intracranial arteries. The left vertebral artery is decreased in size as compared to the right but appears patent. Atherosclerosis is identified within the imaged carotid bulbs.. Marjan Machado MD Chest X-Ray 09/10/17 0000 Signed Impressions: Service Date/Time: Sunday, September 10, 2017 10:02 - CONCLUSION: No evidence of acute cardiopulmonary disease. Marjan Machado MD Objective Remarks General - elderly lady, obese, awake, ill appearing HEENT - pupils are equal, reactive, sclerae are anicteric, neck soft, no rigidity, no JVD, poor dentition, MMM, no thrush CV - regular heart sounds, no murmurs, distant Chest - clear b/l, decreased breath sounds at bases, no wheezes Abdomen - soft, obese, non-tender, BS present, no hepatomegaly, no splenomegaly Skin - no rashes, no cyanosis Extremities - warm and well perfused, no edema, + peripheral pulses, no clubbing Neuro - awake, alert and oriented, pupils are equal and reactive, EOMI, tongue midline, shrugs shoulders, slight left facial asymmetry, motor 5/5 over all extremities except left upper 4.5/5, sensation is intact A/P Assessment and Plan 1. Acute ischemic CVA s/p tpa, doing well, repeat CT head unremarkable 2. Uncontrolled HTN - improved, off cardene 3. Afib was not on anticoagulation 4. Bilateral carotid stenosis 5. DM 6. Obesity 7. HLD 8. ? COPD 9. LIBBY/OHS 10. Hypothyroidism 1. Continue neuro checks 2. Start antiplatelet - of note, patient was off aspirin for 2 years 3. Restart home antihypertensive 4. Advance diet 5. Check blood glucose and insulin sliding scale until good po intake, then restart home long acting 6. ECHO 7. Bronchodilators, fluticasone, montelukast 8. Home CPAP at night 9. Levothryoxine 10. GI prophylaxis Mi,Jorge Jesse MD Sep 11, 2017 13:00
--- NOTE | 2017-09-11 13:14 | HHI.PR ---
Review/Management Daily Summary 09/11 doing well neuro exam this am normal bedside start asa, will defer to medical service anticoagulation though i think this is in her best oob with rehab Subjective Subjective Comments No acute events reported No headache No chest pain No dyspnea Active Medications Current Medications Medications (Trade) Dose Ordered Sig/Anthony Route Start Time Stop Time Status Last Admin Potassium Chloride 100 ml @ 50 mls/hr Q2H PRN IV 09/10/17 10:30 Potassium Chloride 100 ml @ 50 mls/hr Q2H PRN IV 09/10/17 10:30 (K-Lyte Cl Eff) 50 meq UNSCH PRN PO 09/10/17 10:30 Potassium Chloride 100 ml @ 25 mls/hr UNSCH PRN IV 09/10/17 10:30 Potassium Chloride 100 ml @ 50 mls/hr Q2H PRN IV 09/10/17 10:30 Magnesium Sulfate 4 gm/Sodium Chloride 100 ml @ 50 mls/hr UNSCH PRN IV 09/10/17 10:30 (Mag-Ox) 800 mg UNSCH PRN PO 09/10/17 10:30 Magnesium Sulfate 2 gm/Sodium Chloride 100 ml @ 50 mls/hr UNSCH PRN IV 09/10/17 10:30 (K-Phos) 2,000 mg Q4H PRN PO 09/10/17 10:30 Sodium Phosphate 30 mmol/Sodium Chloride 250 ml @ 42 mls/hr UNSCH PRN IV 09/10/17 10:30 (K-Phos) 2,000 mg UNSCH PRN PO/TUBE 09/10/17 10:30 Potassium Phosphate 30 mmol/ Sodium Chloride 260 ml @ 42 mls/hr UNSCH PRN IV 09/10/17 10:30 (Lipitor) 80 mg HS PO 09/10/17 21:00 (Synthroid) 125 mcg DAILY@0600 PO 09/11/17 06:00 09/11/17 05:11 (Singulair) 10 mg DAILY PO 09/11/17 09:00 09/11/17 08:51 (Duoneb Neb) 1 ampule Q6HR WHILE AWAKE NEB NEB 09/10/17 14:00 09/11/17 12:41 (D50w (Vial) Inj) 50 ml UNSCH PRN IV PUSH 09/11/17 12:30 (Glucagon Inj) 1 mg UNSCH PRN OTHER 09/11/17 12:30 (NovoLIN R SUPPLEMENTAL SCALE) 1 ACHS SLIDING SCALE SQ 09/11/17 17:00 (Diovan) 40 mg BID PO 09/11/17 14:00 Allergies Allergies Coded Allergies adhesive (Verified Allergy, Severe, 05/19/17) ampicillin (Unverified Allergy, Severe, 05/19/17) egg (Unverified Allergy, Severe, Nausea/Vomiting, 05/19/17) lactose (Unverified Allergy, Severe, Nausea/Vomiting, 05/19/17) lisinopril (Verified Allergy, Severe, 05/19/17) warfarin (Unverified Allergy, Intermediate, Nausea/Vomiting, 05/19/17) niacin (Unverified Allergy, Unknown, 05/19/17) aspirin (Unverified Adverse Reaction, Mild, GI UPSET, 05/19/17) Exam I&O / VS Vital Signs Date Time Temp Pulse Resp B/P (MAP) Pulse Ox O2 Delivery O2 Flow Rate FiO2 09/11/17 10:00 76 09/11/17 08:00 98.1 69 17 158/67 (97) 93 09/11/17 08:00 69 09/11/17 07:00 99 Nasal Cannula 2.00 09/11/17 06:00 63 09/11/17 04:00 98.8 81 13 142/60 (87) 96 09/11/17 04:00 72 09/11/17 02:00 80 09/11/17 00:00 84 09/11/17 00:00 97.7 81 22 166/72 (103) 100 09/10/17 22:00 78 09/10/17 21:03 99 High Flow Nasal Cannula 1.00 09/10/17 20:00 98.0 72 21 149/70 (96) 96 09/10/17 20:00 67 09/10/17 19:00 98 Nasal Cannula 2.00 09/10/17 18:00 79 09/10/17 16:00 98.0 76 12 142/67 (92) 100 09/10/17 16:00 76 09/10/17 15:26 97.7 76 32 143/70 (94) 99 09/10/17 15:25 76 09/10/17 15:21 Nasal Cannula 2.00 09/10/17 15:09 147/71 (96) 1/27/18 13:36 99 Nasal Cannula 2.00 09/10/17 13:36 82 144/67 (92) Objective Radiology Results Last [address] 09/11/17 1120 Signed Impressions: Service Date/Time: Monday, September 11, 2017 11:13 - CONCLUSION: No acute disease. Marjan Machado MD Neck CTA 09/10/17 0000 Signed Impressions: Service Date/Time: Sunday, September 10, 2017 11:03 - CONCLUSION: Bilateral significant carotid artery atherosclerosis with narrowing of the proximal right and left internal carotid arteries. The left appears greater than 50%% narrowed and the right appears approximately 50%% narrowed.. Marjan Machado MD Head CTA 09/10/17 0000 Signed Impressions: Service Date/Time: Sunday, September 10, 2017 11:03 - CONCLUSION: No evidence of aneurysm or abnormality within the intracranial arteries. The left vertebral artery is decreased in size as compared to the right but appears patent. Atherosclerosis is identified within the imaged carotid bulbs.. Mrajan Machado MD Head CT 09/10/17 0000 Signed Impressions: Service Date/Time: Sunday, September 10, 2017 09:43 - CONCLUSION: Normal exam.. Marjan Machado MD Chest X-Ray 09/10/17 0000 Signed Impressions: Service Date/Time: Sunday, September 10, 2017 10:02 - CONCLUSION: No evidence of acute cardiopulmonary disease. MD Sandra Ghotra Olimpio F. MD Sep 11, 2017 13:14
[2017-09-11 13:21] LABS: HEMATOCRIT 33.8 % (35.0-46.0); HEMOGLOBIN 11.9 GM/DL (11.6-15.3); MEAN CELL VOLUME 91.9 FL (80.0-100.0); MEAN CORPUSCULAR HEMOGLOBIN 32.5 PG (27.0-34.0); MEAN CORPUSCULAR HGB CONC 35.3 % (32.0-36.0); MEAN PLATELET VOLUME 8.1 FL (7.0-11.0); PLATELET COUNT 156 TH/MM3 (150-450); RED BLOOD COUNT 3.67 MIL/MM3 (4.00-5.30); RED CELL DISTRIBUTION WIDTH 17.2 % (11.6-17.2)
[2017-09-11 13:45] LABS: BICARBONATE 28.7 MEQ/L (21.0-32.0); CALCIUM 8.3 MG/DL (8.5-10.1); CREATININE 1.4 MG/DL (0.50-1.00)
[2017-09-11] MEDS: VALSARTAN 40 MG TAB PO SCH ×2 (15:56→20:32)
[2017-09-11] MEDS: ASPIRIN 325 MG TAB PO SCH (15:56)
[2017-09-11] MEDS: DORZOLAMIDE 2% OPTH SOLN 200 DROP/10 ML BTLO EACH EYE SCH (20:31)
[2017-09-11] MEDS: ATORVASTATIN 80 MG TAB PO SCH (20:32)
[2017-09-12] VITALS (12 sets, daily range): BP systolic 135–176; BP diastolic 56–99; PULSE 70–84; RESP 13–22; TEMP 97.9–98.7; O2SAT 96–100
[2017-09-12] MEDS: LEVOTHYROXINE SODIUM 125 MCG TAB PO SCH (05:54)
[2017-09-12] MEDS: MONTELUKAST SODIUM 10 MG TAB PO SCH (08:22)
[2017-09-12] MEDS: ASPIRIN 325 MG TAB PO SCH (08:22)
[2017-09-12] MEDS: VALSARTAN 40 MG TAB PO SCH ×2 (08:22→20:52)
[2017-09-12] MEDS: INSULIN NovoLIN REGULAR SUPPLEMENTAL SCALE SQ SCH ×4 (08:22→21:45)
[2017-09-12] MEDS: DORZOLAMIDE/TIMOLOL OPTH SOLN 10 ML BTL EACH EYE SCH (08:23)
[2017-09-12] MEDS: RESP: ALBUTEROL 2.5 MG/IPRATROPIUM 0.5 MG NEB (SCH) NEB ×3 (08:47→19:53)
[2017-09-12] MEDS: DORZOLAMIDE 2% OPTH SOLN 200 DROP/10 ML BTLO EACH EYE SCH ×2 (09:00→20:52)
--- NOTE | 2017-09-12 15:59 | HHI.CCPN ---
Subjective Remarks/Hospital Course 09/10: 66 y/o lady with h/o Afib not on anticoagulation, HTN, HLD, morbid obesity , hypothyroidism, LIBBY/OHS, ? COPD now presents to ED c/o left arm weakness associated with slurring of speech. Patient's daughter states that the patient had difficulty buckling her seatbelt and then also noticed that the patient had a left facial droop. The patient stated that her symptoms began around 9 AM, she was dropping objects out of the left arm, also states she felt like her left upper extremity was clumsy and she had decreased sensation on the left side of the body. In addition, she also complains of mild right sided headache. No h/o previous CVA but daughter states that after a routine CT the patient had , she was told that she had a stroke in her past. No dizziness or lightheadedness, no chest pain, shortness breath, nausea, vomiting, or abdominal pain. On ED arrival stroke code was called, CT head was negative for brain and ED physician after consulting neuro gave tpa. [facility] was consulted for ICU admission. Of note, patient's BP was high requiring cardene drip, currently at 4. Patient was seen in ED, patient feels better, speech is improved, so is the weakness. 09/11: Patient did well over the night. Feels better, good spirits, no JORGENSEN, weakness is improved as well. Repeat CT head this AM - unremarkable. Off cardene. 09/12: Resting comfortably. Patient walked in the ICU today. Denies any focal weakness currently. Objective Vital Signs Date Time Temp Pulse Resp B/P (MAP) Pulse Ox O2 Delivery O2 Flow Rate FiO2 09/12/17 14:00 82 09/12/17 12:00 98.1 22 152/69 (96) 99 09/12/17 07:00 Room Air 09/11/17 21:00 21 09/11/17 20:00 2.00 Intake and Output 09/12/17 09/12/17 09/13/17 08:00 16:00 00:00 Output Total 2 ml Balance -2 ml Result Diagram: 09/11/17 1304 09/11/17 1304 Imaging Last Impressions Head CT 09/11/17 1120 Signed Impressions: Service Date/Time: Monday, September 11, 2017 11:13 - CONCLUSION: No acute disease. Marjan Machado MD Neck CTA 09/10/17 0000 Signed Impressions: Service Date/Time: Sunday, September 10, 2017 11:03 - CONCLUSION: Bilateral significant carotid artery atherosclerosis with narrowing of the proximal right and left internal carotid arteries. The left appears greater than 50%% narrowed and the right appears approximately 50%% narrowed.. Marjan Machado MD Head CTA 09/10/17 0000 Signed Impressions: Service Date/Time: Sunday, September 10, 2017 11:03 - CONCLUSION: No evidence of aneurysm or abnormality within the intracranial arteries. The left vertebral artery is decreased in size as compared to the right but appears patent. Atherosclerosis is identified within the imaged carotid bulbs.. Marjan Machado MD Chest X-Ray 09/10/17 0000 Signed Impressions: Service Date/Time: Sunday, September 10, 2017 10:02 - CONCLUSION: No evidence of acute cardiopulmonary disease. Marjan Machado MD Objective Remarks General - elderly lady, obese, awake, ill appearing HEENT - pupils are equal, reactive, sclerae are anicteric, neck soft, no rigidity, no JVD, poor dentition, MMM, no thrush CV - regular heart sounds, no murmurs, distant Chest - clear b/l, decreased breath sounds at bases, no wheezes Abdomen - soft, obese, non-tender, BS present, no hepatomegaly, no splenomegaly Skin - no rashes, no cyanosis Extremities - warm and well perfused, no edema, + peripheral pulses, no clubbing Neuro - awake, alert and oriented, pupils are equal and reactive, EOMI, tongue midline, shrugs shoulders, slight left facial asymmetry, motor 5/5 over all extremities except left upper 4.5/5, sensation is intact A/P Assessment and Plan 1. Acute ischemic CVA s/p tpa, doing well, repeat CT head unremarkable 2. Uncontrolled HTN - improved, off cardene 3. Afib was not on anticoagulation 4. Bilateral carotid stenosis 5. DM 6. Obesity 7. HLD 8. ? COPD 9. LIBBY/OHS 10. Hypothyroidism 1. Continue neuro checks 2. Continue aspirin - of note, patient was off aspirin for 2 years 3. Continue home antihypertensive 4. Advance diet 5. Check blood glucose and insulin sliding scale until good po intake, then restart home long acting 6. ECHO 7. Bronchodilators, fluticasone, montelukast 8. Home CPAP at night 9. Levothryoxine 10. GI prophylaxis Transfer out of ICU. Transfer to hospitalist service for further medical management, critical care will be signing off. Miguelangel Velasquez MD Sep 12, 2017 15:59
--- NOTE | 2017-09-12 16:21 | ECHRPT ---
Indication: cva/tia CONCLUSIONS Technically limited study. Mild left ventricular dilatation. The left ventricular systolic function is moderately to severely reduced with an estimated ejection fraction in the range of 30-35%. [id number] mitral valve regurgitation. There is mild tricuspid valve regurgitation. The estimated pulmonary arterial pressure is 49 mmHg. BP: / HR: Rhythm: MEASUREMENTS (Male / Female) Normal Values Technical Quality:Very technically difficult study 2D ECHO LV Diastolic Diameter PLAX 4.9 cm 4.2 - 5.9 / 3.9 - 5.3 cm LV Systolic Diameter PLAX 4.5 cm IVS Diastolic Thickness 1.4 cm 0.6 - 1.0 / 0.6 - 0.9 cm LVPW Diastolic Thickness 1.4 cm 0.6 - 1.0 / 0.6 - 0.9 cm LV Relative Wall Thickness 0.6 RV Internal Dim ED PLAX 2.6 cm M-MODE Aortic Root Diameter MM 3.5 cm LA Systolic Diameter MM 4.6 cm LA Ao Ratio MM 1.3 AV Cusp Separation MM 2.2 cm DOPPLER LV E' Lateral Velocity 6.6 cm/s LV E' Septal Velocity 4.4 cm/s TR Peak Velocity 312.0 cm/s TR Peak Gradient 38.9 mmHg Right Atrial Pressure 10.0 mmHg Pulmonary Artery Systolic Pressu 48.9 mmHg Right Ventricular Systolic Press 48.9 mmHg FINDINGS LEFT VENTRICLE Mild LV dilatation. The left ventricular systolic function is moderately to severely reduced with an estimated ejection fraction in the range of 30-35%. RIGHT VENTRICLE Normal right ventricular size and systolic function. LEFT ATRIUM The left atrial size is normal. RIGHT ATRIUM The right atrial size is normal. ATRIAL SEPTUM Normal atrial septal thickness without atrial level shunting by limited color doppler interrogation. AORTA The aortic root and proximal ascending aorta are normal in size on limited imaging. MITRAL VALVE Structurally normal mitral valve. [id number] mitral valve regurgitation. AORTIC VALVE Trileaflet aortic valve. No aortic valve regurgitation. No aortic valve stenosis. TRICUSPID VALVE Structurally normal tricuspid valve. There is mild tricuspid valve regurgitation. The estimated pulmonary arterial pressure is 48.9 mmHg. PULMONARY VALVE No pulmonary valve regurgitation or stenosis. VESSELS The inferior vena cava is normal in size. PERICARDIUM No pericardial effusion. Jeremy Chamberlain MD, FACC (Electronically Signed) Final Date:12 September 2017 16:19
[2017-09-12] MEDS: ATORVASTATIN 80 MG TAB PO SCH (20:52)
[2017-09-13] VITALS (10 sets, daily range): BP systolic 97–150; BP diastolic 62–98; PULSE 69–89; RESP 17–21; TEMP 97.4–98.5; O2SAT 96–100
[2017-09-13 04:24] LABS: HEMATOCRIT 34.6 % (35.0-46.0); HEMOGLOBIN 12.4 GM/DL (11.6-15.3); MEAN CELL VOLUME 91.2 FL (80.0-100.0); MEAN CORPUSCULAR HEMOGLOBIN 32.7 PG (27.0-34.0); MEAN CORPUSCULAR HGB CONC 35.8 % (32.0-36.0); MEAN PLATELET VOLUME 7.9 FL (7.0-11.0); PLATELET COUNT 166 TH/MM3 (150-450); RED BLOOD COUNT 3.79 MIL/MM3 (4.00-5.30); RED CELL DISTRIBUTION WIDTH 17.1 % (11.6-17.2)
[2017-09-13 05:15] LABS: BICARBONATE 28.8 MEQ/L (21.0-32.0); CALCIUM 8.4 MG/DL (8.5-10.1); CREATININE 1.24 MG/DL (0.50-1.00)
[2017-09-13] MEDS: LEVOTHYROXINE SODIUM 125 MCG TAB PO SCH (06:00)
[2017-09-13] MEDS: RESP: ALBUTEROL 2.5 MG/IPRATROPIUM 0.5 MG NEB (SCH) NEB ×2 (08:26→14:00)
[2017-09-13] MEDS: INSULIN NovoLIN REGULAR SUPPLEMENTAL SCALE SQ SCH ×3 (08:28→17:00)
[2017-09-13] MEDS: DORZOLAMIDE/TIMOLOL OPTH SOLN 10 ML BTL EACH EYE SCH (08:29)
[2017-09-13] MEDS: DORZOLAMIDE 2% OPTH SOLN 200 DROP/10 ML BTLO EACH EYE SCH ×2 (08:29→22:49)
[2017-09-13] MEDS: MONTELUKAST SODIUM 10 MG TAB PO SCH (08:29)
[2017-09-13] MEDS: VALSARTAN 40 MG TAB PO SCH ×2 (08:29→22:48)
[2017-09-13] MEDS: ASPIRIN 325 MG TAB PO SCH (08:29)
--- NOTE | 2017-09-13 15:46 | HHI.PR ---
Subjective Remarks Pt feeling overall better today Speech and swallowing is stable Pt ambulated in the ICU today Objective Vitals Vital Signs Date Time Temp Pulse Resp B/P (MAP) Pulse Ox O2 Delivery O2 Flow Rate FiO2 09/13/17 12:00 98.3 89 19 140/78 (98) 99 09/13/17 08:26 96 21 09/13/17 08:00 74 09/13/17 08:00 97.9 74 17 150/98 (115) 99 09/13/17 07:00 98 Room Air 09/13/17 04:00 98.0 69 18 128/72 (90) 100 09/13/17 00:00 98.5 77 18 132/62 (85) 100 09/12/17 20:00 98.5 84 18 138/56 (83) 97 09/12/17 19:56 100 21 09/12/17 19:15 97 Room Air 09/12/17 16:00 78 09/12/17 16:00 98.2 78 15 168/99 (122) 100 Result Diagram: 09/13/17 0338 09/13/17 0338 Other Results Laboratory Tests Test 09/13/17 03:38 White Blood Count 9.0 TH/MM3 Red Blood Count 3.79 MIL/MM3 Hemoglobin 12.4 GM/DL Hematocrit 34.6 % Mean Corpuscular Volume 91.2 FL Mean Corpuscular Hemoglobin 32.7 PG Mean Corpuscular Hemoglobin Concent 35.8 % Red Cell Distribution Width 17.1 % Platelet Count 166 TH/MM3 Mean Platelet Volume 7.9 FL Blood Urea Nitrogen 15 MG/DL Creatinine 1.24 MG/DL Random Glucose 140 MG/DL Calcium Level 8.4 MG/DL Sodium Level 141 MEQ/L Potassium Level 3.7 MEQ/L Chloride Level 106 MEQ/L Carbon Dioxide Level 28.8 MEQ/L Anion Gap 6 MEQ/L Estimat Glomerular Filtration Rate 43 ML/MIN Imaging Last Impressions Head CT 09/11/17 1120 Signed Impressions: Service Date/Time: Monday, September 11, 2017 11:13 - CONCLUSION: No acute disease. Marjan Machado MD Neck CTA 09/10/17 0000 Signed Impressions: Service Date/Time: Sunday, September 10, 2017 11:03 - CONCLUSION: Bilateral significant carotid artery atherosclerosis with narrowing of the proximal right and left internal carotid arteries. The left appears greater than 50%% narrowed and the right appears approximately 50%% narrowed.. Marjan Machado MD Head CTA 09/10/17 0000 Signed Impressions: Service Date/Time: Sunday, September 10, 2017 11:03 - CONCLUSION: No evidence of aneurysm or abnormality within the intracranial arteries. The left vertebral artery is decreased in size as compared to the right but appears patent. Atherosclerosis is identified within the imaged carotid bulbs.. Marjan Machado MD Chest X-Ray 09/10/17 0000 Signed Impressions: Service Date/Time: Sunday, September 10, 2017 10:02 - CONCLUSION: No evidence of acute cardiopulmonary disease. Marjan Machado MD Objective Remarks General: NAD, AAOx3 Chest: CTA Cardiac: Irregularly irregular Abd: +BS, soft ND/NT Ext: No edema A/P Problem List: (1) CVA (cerebral vascular accident) ICD Codes: I63.9 - Cerebral infarction, unspecified Status: Acute Plan: - Pt is a 66 y/o female with A. fib (not on any anticoagulation), HTN, HLD, morbid obesity, hypothyroidism, and LIBBY who presented to ED on 09/10/17 with complaints of left arm weakness associated with slurring of speech. Pt reportedly had difficulty buckling her seatbelt and then also noticed that the patient had a left facial droop and was dropping objects out of the left hand, also states she felt like her left upper extremity was clumsy and she had decreased sensation on the left side of the body. - Pt was admitted as as stroke alert - CT head (09/10) was negative - CTA brain (09/10) --> No evidence of aneurysm or abnormality within the intracranial arteries. The left vertebral artery is decreased in size as compared to the right but appears patent. Atherosclerosis is identified within the imaged carotid bulbs. - Neck CTA (09/10) --> Bilateral significant carotid artery atherosclerosis with narrowing of the proximal right and left internal carotid arteries. The left appears greater than 50% narrowed and the right appears approximately 50% narrowed.. - Neurology and pt received TPA and was admitted to [facility] - Initially patient's BP was high requiring Cardene drip which was weaned off - Pt had clinical improvement and her neuro symptoms resolved - Repeat Head CT (09/11) was negative - PT/OT/ST - Lipid profile noted, LDL is 60. Lipitor 80mg HS - 2D echo (09/12/17) --> Mild LV dilatation, estimated EF 30-35%, [id number] MV regurg, Mild tricuspid valve regurg, estimated PA pressure 49mmHg - Pt was started on ASA 325mg po daily - Pt is on Valsartan 40mg po BID for BP control. - Pt was noted to be in A. fib at admission and is not on any chronic anticoagulation - We will stop ASA and start Eliquis 5mg po BID - Monitor clinical status closely (2) Atrial fibrillation ICD Codes: I48.91 - Unspecified atrial fibrillation Status: Chronic Plan: - Pt with noted A fib at admission and hx of A. fib not on anticoagulation - Eliquis 5mg po BID (3) Hypertension ICD Codes: I10 - Essential (primary) hypertension Status: Chronic Plan: - BP is better controlled currently - Pt is on Diovan 40mg po BID (4) COPD (chronic obstructive pulmonary disease) ICD Codes: J44.9 - Chronic obstructive pulmonary disease, unspecified Status: Chronic Plan: - Duonebs Q6HWA (5) Insulin dependent diabetes mellitus ICD Codes: E11.9 - Type 2 diabetes mellitus without complications; Z79.4 - exterminator termite (current) use of insulin Status: Chronic Plan: - NovoLog SSI, medium dose - Pt also uses NPH 20 units daily at home, may need to convert to Levemir 10 units daily while admitted - Accu checks (6) LIBBY on CPAP ICD Codes: G47.33 - Obstructive sleep apnea (adult) (pediatric); Z99.89 - Dependence on other enabling machines and devices Plan: - Use home CPAP at night (7) CHF (congestive heart failure) ICD Codes: I50.9 - Heart failure, unspecified Status: Chronic Plan: - 2D echo (09/12/17) --> Mild LV dilatation, estimated EF 30-35%, [id number] MV regurg, Mild tricuspid valve regurg, estimated PA pressure 49mmHg - Previous 2D echo in 2016 noted EF 40-45% - Pt was resumed on Diovan 40mg po BID - She was also noted to be on Lasix 40mg po BID as an outpt. We will resume Lasix 40mg po daily on 09/14/17 and monitor labs and clinical status closely Assessment and Plan Patient examined. Assessment and plan formulated with Kisha Denise PA-C. I agree with the above. Problem Qualifiers (1) CVA (cerebral vascular accident): Qualified Codes: I63.9 - Cerebral infarction, unspecified (2) Atrial fibrillation: Qualified Codes: I48.91 - Unspecified atrial fibrillation (3) CHF (congestive heart failure): Kisha Denise Sep 13, 2017 15:45 John Arenas DO Sep 16, 2017 14:23
[2017-09-13] MEDS ORDERED: RESP: ALBUTEROL 2.5 MG/IPRATROPIUM 0.5 MG NEB (PRN) NEB (17:00)
--- NOTE | 2017-09-13 20:21 | HHI.PR ---
Review/Management Daily Summary 09/11 doing well neuro exam this am normal bedside start asa, will defer to medical service anticoagulation though i think this is in her best oob with rehab 09/13 no cx daughter at bedside no deficits bedside on eliquis d/c soon prn neuro Subjective Subjective Comments No acute events reported No headache No chest pain No dyspnea Active Medications Current Medications Medications (Trade) Dose Ordered Sig/Anthony Route Start Time Stop Time Status Last Admin Potassium Chloride 100 ml @ 50 mls/hr Q2H PRN IV 09/10/17 10:30 Potassium Chloride 100 ml @ 50 mls/hr Q2H PRN IV 09/10/17 10:30 (K-Lyte Cl Eff) 50 meq UNSCH PRN PO 09/10/17 10:30 Potassium Chloride 100 ml @ 25 mls/hr UNSCH PRN IV 09/10/17 10:30 Potassium Chloride 100 ml @ 50 mls/hr Q2H PRN IV 09/10/17 10:30 Magnesium Sulfate 4 gm/Sodium Chloride 100 ml @ 50 mls/hr UNSCH PRN IV 09/10/17 10:30 (Mag-Ox) 800 mg UNSCH PRN PO 09/10/17 10:30 Magnesium Sulfate 2 gm/Sodium Chloride 100 ml @ 50 mls/hr UNSCH PRN IV 09/10/17 10:30 (K-Phos) 2,000 mg Q4H PRN PO 09/10/17 10:30 Sodium Phosphate 30 mmol/Sodium Chloride 250 ml @ 42 mls/hr UNSCH PRN IV 09/10/17 10:30 (K-Phos) 2,000 mg UNSCH PRN PO/TUBE 09/10/17 10:30 Potassium Phosphate 30 mmol/ Sodium Chloride 260 ml @ 42 mls/hr UNSCH PRN IV 09/10/17 10:30 (Lipitor) 80 mg HS PO 09/10/17 21:00 09/12/17 20:52 (Synthroid) 125 mcg DAILY@0600 PO 09/11/17 06:00 09/12/17 05:54 (Singulair) 10 mg DAILY PO 09/11/17 09:00 09/13/17 08:29 (Duoneb Neb) 1 ampule Q6HR WHILE AWAKE NEB NEB 09/10/17 14:00 09/13/17 08:26 (D50w (Vial) Inj) 50 ml UNSCH PRN IV PUSH 09/11/17 12:30 (Glucagon Inj) 1 mg UNSCH PRN OTHER 09/11/17 12:30 (NovoLIN R SUPPLEMENTAL SCALE) 1 ACHS SLIDING SCALE SQ 09/11/17 17:00 09/13/17 17:00 (Diovan) 40 mg BID PO 09/11/17 14:00 09/13/17 08:29 (Trusopt 2% Opth Soln) 1 drop BID EACH EYE 09/11/17 21:00 09/13/17 08:29 (Cosopt 2-0.5% Opth Soln) 1 drop DAILY EACH EYE 09/12/17 09:00 09/13/17 08:29 (Eliquis) 5 mg BID PO 09/13/17 21:00 (Lasix) 40 mg DAILY PO 09/14/17 09:00 (Duoneb Neb) 1 ampule Q6HR NEB PRN NEB 09/13/17 17:00 Allergies Allergies Coded Allergies adhesive (Verified Allergy, Severe, 05/19/17) ampicillin (Unverified Allergy, Severe, 05/19/17) egg (Unverified Allergy, Severe, Nausea/Vomiting, 05/19/17) lactose (Unverified Allergy, Severe, Nausea/Vomiting, 05/19/17) lisinopril (Verified Allergy, Severe, 05/19/17) warfarin (Unverified Allergy, Intermediate, Nausea/Vomiting, 05/19/17) niacin (Unverified Allergy, Unknown, 05/19/17) aspirin (Unverified Adverse Reaction, Mild, GI UPSET, 05/19/17) Exam I&O / VS 09/13/17 09/13/17 09/14/17 15:00 23:00 07:00 Intake Total 1200 ml Balance 1200 ml Intake Oral 1200 ml # Voids 5 # Bowel Movements 2 Vital Signs Date Time Temp Pulse Resp B/P (MAP) Pulse Ox O2 Delivery O2 Flow Rate FiO2 09/13/17 20:15 97.8 88 20 97/64 (75) 100 09/13/17 16:16 73 09/13/17 16:00 97.4 82 21 130/67 (88) 97 09/13/17 12:00 98.3 89 19 140/78 (98) 99 09/13/17 08:26 96 21 09/13/17 08:00 74 09/13/17 08:00 97.9 74 17 150/98 (115) 99 09/13/17 07:00 98 Room Air 09/13/17 04:00 98.0 69 18 128/72 (90) 100 09/13/17 00:00 98.5 77 18 132/62 (85) 100 Objective Micro and Labs Laboratory Tests Test 09/13/17 03:38 White Blood Count 9.0 Red Blood Count 3.79 Hemoglobin 12.4 Hematocrit 34.6 Mean Corpuscular Volume 91.2 Mean Corpuscular Hemoglobin 32.7 Mean Corpuscular Hemoglobin Concent 35.8 Red Cell Distribution Width 17.1 Platelet Count 166 Mean Platelet Volume 7.9 Blood Urea Nitrogen 15 Creatinine 1.24 Random Glucose 140 Calcium Level 8.4 Sodium Level 141 Potassium Level 3.7 Chloride Level 106 Carbon Dioxide Level 28.8 Anion Gap 6 Estimat Glomerular Filtration Rate 43 Benjy Flores MD Sep 13, 2017 20:21
[2017-09-13] MEDS: ATORVASTATIN 80 MG TAB PO SCH (22:47)
[2017-09-14] VITALS (7 sets, daily range): BP systolic 130–173; BP diastolic 63–87; PULSE 66–90; RESP 17–25; TEMP 87.6–98; O2SAT 97–100
[2017-09-14] MEDS ORDERED: FUROSEMIDE 40 MG TAB PO ONE (00:30)
[2017-09-14] MEDS: APIXABAN 5 MG TABLET PO SCH ×3 (00:41→21:45)
[2017-09-14] MEDS: INSULIN NovoLIN REGULAR SUPPLEMENTAL SCALE SQ SCH ×5 (00:43→21:45)
[2017-09-14 04:56] LABS: HEMATOCRIT 34.2 % (35.0-46.0); HEMOGLOBIN 11.9 GM/DL (11.6-15.3); MEAN CELL VOLUME 92.2 FL (80.0-100.0); MEAN CORPUSCULAR HEMOGLOBIN 32.1 PG (27.0-34.0); MEAN CORPUSCULAR HGB CONC 34.8 % (32.0-36.0); MEAN PLATELET VOLUME 8.4 FL (7.0-11.0); PLATELET COUNT 170 TH/MM3 (150-450); RED BLOOD COUNT 3.71 MIL/MM3 (4.00-5.30); RED CELL DISTRIBUTION WIDTH 16.6 % (11.6-17.2); WHITE BLOOD COUNT 8.1 TH/MM3 (4.0-11.0)
[2017-09-14 05:11] LABS: BICARBONATE 26.9 MEQ/L (21.0-32.0); CREATININE 1.51 MG/DL (0.50-1.00); MAGNESIUM 2.1 MG/DL (1.5-2.5)
[2017-09-14] MEDS: LEVOTHYROXINE SODIUM 125 MCG TAB PO SCH (06:24)
[2017-09-14] MEDS: RESP: ALBUTEROL 2.5 MG/IPRATROPIUM 0.5 MG NEB (SCH) NEB ×2 (08:06→13:37)
[2017-09-14] MEDS: DORZOLAMIDE/TIMOLOL OPTH SOLN 10 ML BTL EACH EYE SCH ×2 (09:00→10:48)
[2017-09-14] MEDS ORDERED: APIX5TAB PO (10:14)
--- NOTE | 2017-09-14 10:20 | HHI.FF ---
Face to Face Verification Diagnosis: (1) CVA (cerebral vascular accident) (2) DM (diabetes mellitus) (3) Atrial fibrillation Physical Therapy Order: Evaluate and Treat, Improve ambulation, Strength and gait training Home Health Nursing Order: Medical education Signs/symptoms of disease process Diabetic education Medication education-adverse effect Nursing assessment with vital signs I have seen patient Dyana Perez on 09/14/17. My clinical findings support the need for the requested home health care services because: Deconditioned w/ increased weakness High risk of falls I certify that my clinical findings support that this patient is homebound because: Unsteady gait/balance Jillian Gray Sep 14, 2017 10:20 John Arenas DO Sep 16, 2017 14:23
[2017-09-14] MEDS: FUROSEMIDE 40 MG TAB PO SCH (10:47)
[2017-09-14] MEDS: VALSARTAN 40 MG TAB PO SCH ×2 (10:47→21:45)
[2017-09-14] MEDS: MONTELUKAST SODIUM 10 MG TAB PO SCH (10:47)
[2017-09-14] MEDS: DORZOLAMIDE 2% OPTH SOLN 200 DROP/10 ML BTLO EACH EYE SCH ×2 (10:48→21:02)
--- NOTE | 2017-09-14 13:41 | HHI.DS ---
Discharge Summary Admission Date Sep 10, 2017 at 10:28 Discharge Date: Sep 15, 2017 Admitting Diagnosis acute CVA, atrial fibrillation, diabetes (1) CVA (cerebral vascular accident) Diagnosis: Principal ICD Codes: I63.9 - Cerebral infarction, unspecified Status: Acute (2) Atrial fibrillation Diagnosis: Secondary ICD Codes: I48.91 - Unspecified atrial fibrillation Status: Chronic (3) Hypertension Diagnosis: Secondary ICD Codes: I10 - Essential (primary) hypertension Status: Chronic (4) COPD (chronic obstructive pulmonary disease) Diagnosis: Secondary ICD Codes: J44.9 - Chronic obstructive pulmonary disease, unspecified Status: Chronic (5) Insulin dependent diabetes mellitus Diagnosis: Secondary ICD Codes: E11.9 - Type 2 diabetes mellitus without complications; Z79.4 - termite control servicer (current) use of insulin Status: Chronic (6) LIBBY on CPAP Diagnosis: Secondary ICD Codes: G47.33 - Obstructive sleep apnea (adult) (pediatric); Z99.89 - Dependence on other enabling machines and devices (7) CHF (congestive heart failure) Diagnosis: Secondary ICD Codes: I50.9 - Heart failure, unspecified Status: Chronic Consultants Dr. Flores, neurology Dr. Cain, ICU Procedures none Brief History Per Dr. Cain admission note: 66 y/o lady with h/o Afib not on anticoagulation, HTN, HLD, morbid obesity, hypothyroidism, LIBBY/OHS, ? COPD now presents to ED c/o left arm weakness associated with slurring of speech. Patient's daughter states that the patient had difficulty buckling her seatbelt and then also noticed that the patient had a left facial droop. The patient stated that her symptoms began around 9 AM, she was dropping objects out of the left arm, also states she felt like her left upper extremity was clumsy and she had decreased sensation on the left side of the body. In addition, she also complains of mild right sided headache. No h/o previous CVA but daughter states that after a routine CT the patient had , she was told that she had a stroke in her past. No dizziness or lightheadedness, no chest pain, shortness breath, nausea, vomiting, or abdominal pain. On ED arrival stroke code was called, CT head was negative for brain and ED physician after consulting neuro gave tpa. [facility] was consulted for ICU admission. Of note, patient's BP was high requiring cardene drip, currently at 4. Patient was seen in ED, patient feels better, speech is improved, so is the weakness. CBC/BMP: 09/14/17 0338 09/14/17 0338 Significant Findings Laboratory Tests Test 09/13/17 03:38 09/14/17 03:38 Red Blood Count 3.79 MIL/MM3 (4.00-5.30) 3.71 MIL/MM3 (4.00-5.30) Hematocrit 34.6 % (35.0-46.0) 34.2 % (35.0-46.0) Creatinine 1.24 MG/DL (0.50-1.00) 1.51 MG/DL (0.50-1.00) Random Glucose 140 MG/DL (74-106) 231 MG/DL (74-106) Calcium Level 8.4 MG/DL (8.5-10.1) 8.0 MG/DL (8.5-10.1) Estimat Glomerular Filtration Rate 43 ML/MIN (>89) 34 ML/MIN (>89) Blood Urea Nitrogen 21 MG/DL (7-18) Imaging Last Impressions Head CT 09/11/17 1120 Signed Impressions: Service Date/Time: Monday, September 11, 2017 11:13 - CONCLUSION: No acute disease. Marjan Machado MD Neck CTA 09/10/17 0000 Signed Impressions: Service Date/Time: Sunday, September 10, 2017 11:03 - CONCLUSION: Bilateral significant carotid artery atherosclerosis with narrowing of the proximal right and left internal carotid arteries. The left appears greater than 50%% narrowed and the right appears approximately 50%% narrowed.. Marjan Machado MD Head CTA 09/10/17 0000 Signed Impressions: Service Date/Time: Sunday, September 10, 2017 11:03 - CONCLUSION: No evidence of aneurysm or abnormality within the intracranial arteries. The left vertebral artery is decreased in size as compared to the right but appears patent. Atherosclerosis is identified within the imaged carotid bulbs.. Marjan Machado MD Chest X-Ray 09/10/17 0000 Signed Impressions: Service Date/Time: Sunday, September 10, 2017 10:02 - CONCLUSION: No evidence of acute cardiopulmonary disease. Marjan Machado MD PE at Discharge General: NAD, AAOx3 Chest: CTA Cardiac: Irregularly irregular Abd: +BS, soft ND/NT Ext: No edema Hospital Course CVA (cerebral vascular accident) - Pt is a 66 y/o female with A. fib (not on any anticoagulation), HTN, HLD, morbid obesity, hypothyroidism, and LIBBY who presented to ED on 09/10/17 with complaints of left arm weakness associated with slurring of speech. Pt reportedly had difficulty buckling her seatbelt and then also noticed that the patient had a left facial droop and was dropping objects out of the left hand, also states she felt like her left upper extremity was clumsy and she had decreased sensation on the left side of the body. - Pt was admitted as as stroke alert - CT head (09/10) was negative - CTA brain (09/10) --> No evidence of aneurysm or abnormality within the intracranial arteries. The left vertebral artery is decreased in size as compared to the right but appears patent. Atherosclerosis is identified within the imaged carotid bulbs. - Neck CTA (09/10) --> Bilateral significant carotid artery atherosclerosis with narrowing of the proximal right and left internal carotid arteries. The left appears greater than 50% narrowed and the right appears approximately 50% narrowed. - Discussed results with Dr. Vega who agrees to see patient in consult. would like patient to follow up outpatient - MRI reviewed and reveals: No acute hemorrhage, mass or infarct. Mild atrophy and chronic small vessel ischemic change. - Neurology and pt received TPA and was admitted to [facility] - Initially patient's BP was high requiring Cardene drip which was weaned off - Pt had clinical improvement and her neuro symptoms resolved - Repeat Head CT (09/11) was negative - PT/OT/ST - Lipid profile noted, LDL is 60. Lipitor 80mg HS - 2D echo (09/12/17) --> Mild LV dilatation, estimated EF 30-35%, [id number] MV regurg, Mild tricuspid valve regurg, estimated PA pressure 49mmHg - Pt was started on ASA 325mg po daily - Pt is on Valsartan 40mg po BID for BP control. - Pt was noted to be in A. fib at admission and is not on any chronic anticoagulation - We will stop ASA and start Eliquis 5mg po BID - Monitor clinical status closely Atrial fibrillation - Pt with noted A fib at admission and hx of A. fib not on anticoagulation - Eliquis 5mg po BID Hypertension - BP is better controlled currently - Pt is on Diovan 40mg po BID COPD (chronic obstructive pulmonary disease) - Duonebs Q6HWA Insulin dependent diabetes mellitus - NovoLog SSI, medium dose - Pt also uses NPH 20 units daily at home, may need to convert to Levemir 10 units daily while admitted - Accu checks LIBBY on CPAP - Use home CPAP at night CHF (congestive heart failure) - 2D echo (09/12/17) --> Mild LV dilatation, estimated EF 30-35%, [id number] MV regurg, Mild tricuspid valve regurg, estimated PA pressure 49mmHg - Previous 2D echo in 2015 noted EF 40-45% - Pt was resumed on Diovan 40mg po BID - She was also noted to be on Lasix 40mg po BID as an outpt. We will resume Lasix 40mg po daily on 09/14/17 and monitor labs and clinical status closely Pt Condition on Discharge: Stable Discharge Disposition: Disch w/ Home Health Serv Discharge Instructions DIET: Follow Instructions for: Heart Healthy Diet, Diabetic Diet Activities you can perform: Regular-No Restrictions Follow up Referrals: Neurology - 2 Weeks with Benjy Flores MD PCP Follow-up - [address] Martinez Vascular Surgery - 1 Month with Li Vega MD New Orders: BASIC METABOLIC PROF - 1 Week New Medications: Apixaban (Eliquis) 5 Mg Tab 5 MG PO BID for Blood Clot Prevention, #60 TAB 0 Refills Continued Medications: Albuterol 18 GM Inh (Ventolin Hfa 18 GM Inh) 90 Mcg/Act Aer 2 PUFF INH Q4-6H PRN for SHORTNESS OF BREATH, #1 INHALER 0 Refills Albuterol Neb (Albuterol Neb) 0.63 Mg/3 Ml Neb 0.63 MG NEB Q4HR NEB PRN for SHORTNESS OF BREATH, #25 NEBULE 0 Refills Atorvastatin (Atorvastatin) 80 Mg Tab 80 MG PO HS for Cholesterol Management, #30 TAB 0 Refills Dorzolamide Opth Drops (Dorzolamide Opth Drops) 2% Soln 1 DROP EACH EYE BID for Glaucoma, #1 BOTTLE 0 Refills Dorzolamide-Timolol Opth Drops (Dorzolamide-Timolol Opth Drops) 22.3-6.8 Mg/Ml Soln 1 DROP EACH EYE DAILY for Glaucoma, BOTTLE 0 Refills Fluticasone 12 GM Inh (Flovent Hfa 12 GM Inh) 220 Mcg/Act Inh 2 PUFF INH BID for Asthma Management, #1 INHALER 0 Refills Use daily at the same time. Furosemide (Lasix) 40 Mg Tab 40 MG PO BID@09,18 for chf, #60 TAB Insulin Human NPH Inj (Novolin N Inj) 1,000 Unit/10 Ml Vial 20 UNITS SQ DAILY for Blood Sugar Management, #10 ML 0 Refills Insulin Human Regular Inj (Novolin R Inj) 1,000 Unit/10 Ml Vial 1 SQ DIRECTED for Blood Sugar Management, #10 ML 0 Refills Sliding Scale As Directed. Levothyroxine (Levothyroxine) 125 Mcg Tab 125 MCG PO DAILY for Thyroid, #30 TAB 0 Refills Montelukast (Montelukast) 10 Mg Tab 10 MG PO DAILY, #30 TAB 0 Refills Potassium Chloride ER (K-Tab) 10 Meq Tab 10 MEQ PO BID for Electrolyte Replacement, #60 TAB 0 Refills Valsartan (Valsartan) 40 Mg Tab 40 MG PO BID for chf, #60 TAB 0 Refills Discontinued Medications: Oxycodone-Acetaminophen (Percocet) 5-325 mg Tab 1 TAB PO Q6H PRN for PAIN, #40 TAB 0 Refills Additional Information Patient examined. Assessment and plan formulated with Jillian Gray PA-C. I agree with the above. Jillian Gray Sep 14, 2017 13:41 John Arenas DO Sep 16, 2017 14:25
--- NOTE | 2017-09-14 17:05 | MB ---
cc: LI BARTHOLOMEW MD DATE OF CONSULTATION: 09/14/2017 REASON FOR CONSULTATION: Bilateral carotid stenosis, right hemispheric stroke, hypertension, atrial fibrillation, coronary artery disease and COPD. HISTORY OF PRESENT DISEASE: This 66 year-old female with complex prior history presents to the emergency room stating that her left arm suddenly fell asleep and started slurring speech. The patient was also noted to have a facial droop. The symptoms began around 9 a.m. and disappeared somewhere later during the day. As I am seeing the patient, she is fully neurologically intact. The patient was in the process of workup which revealed bilateral carotid stenosis, right probably about 65% and left about 50. The question arises about any vascular implications of this. PAST MEDICAL HISTORY: 1. Complex, and includes atrial fibrillation, poorly controlled. 2. Hypertension, poorly controlled. 3. Hyperlipidemia. 4. Hypothyroidism. 5. Carpal tunnel syndrome. 6. Morbid obesity. PAST SURGICAL HISTORY: 1. Cataract surgery. 2. Tonsillectomy MEDICATIONS: Can be found in the record. SOCIAL HISTORY The patient states she does not smoke and eats healthy. PHYSICAL EXAMINATION: Reveals an obese 66 year-old female. HEENT: Normocephalic. No trauma to the head. Pupils are equal and reactive. Extraocular movements intact. NECK: Bilateral carotid pulses. Bilateral very faint bruits, maybe 2/6. It certainly will be very hard to hear those bruits if I did not know the patient had previous ultrasound and CT scan, so I sort of listened a little more carefully. CHEST: Bilateral breath sounds decreased over both lung miner consistent with moderate degree of COPD. The patient is barrel-chested. HEART: Irregular rhythm. The patient is currently in chronic controlled rate atrial fibrillation about 70 per minute going up and down. ABDOMEN: The abdomen is obese, soft. Active bowel sounds. EXTREMITIES: The patient has palpable femoral pulses, dopplerable popliteal pulses and dopplerable dorsalis pedis, posterior tibial pulses. I do not feel but a faint left dorsalis pedis. Feet are well-perfused and warm. The patient does not have acute vascular deficit. NEUROLOGIC: The patient is fully intact. [place] coma scale is 15. She is motorically fully intact. There is no lateralization, although on arrival apparently her left arm was weaker. IMPRESSION/RECOMMENDATIONS I reviewed the laboratory and diagnostic procedures. This lady indeed came as a stroke alert. She was seen by appropriate specialists. Right now the patient had battery of studies that did not show any stroke, left or right, however, there is no question that the patient had right hemispheric stroke with left hemiparesis, MRI is pending. At this point it is very hard to tell for me if the patient had a stroke related to atrial fibrillation which is most likely or due to the carotid disease, but 70% of patients with strokes and TIAs have it because of uncontrolled atrial fibrillation, lack of anticoagulation or small vessel disease of the brain. Only about 30% are the other ones that have a stroke because of the carotid disease. At this point I do not have enough index of suspicion to recommend surgery in this patient. The patient should be discharged. She will follow up with me in a month and we will see how things go, provided she has no other symptoms. We should watch her and probably repeat ultrasound of the carotids in about six months. If she develops symptoms earlier, then we can reassess. She will follow up in my office. Thank you for the referral. Critical care time: 40 minutes. Li FIGUEROA /3:42 PM /4:19 PM
--- NOTE | 2017-09-14 17:36 | HHI.PR ---
Subjective Remarks Patient reports feeling well today Offers no new concerns Objective Vitals Vital Signs Date Time Temp Pulse Resp B/P (MAP) Pulse Ox O2 Delivery O2 Flow Rate FiO2 09/14/17 16:00 87.6 80 18 148/63 (91) 99 09/14/17 12:00 98.0 73 17 162/87 (112) 100 09/14/17 08:06 97 21 09/14/17 08:00 97.6 73 25 156/84 (108) 99 09/14/17 04:06 97.6 77 20 136/65 (88) 98 09/14/17 00:00 97.5 66 22 130/67 (88) 97 09/13/17 21:36 97 21 09/13/17 20:15 97.8 88 20 97/64 (75) 100 09/13/17 20:00 Room Air 09/13/17 20:00 74 09/14/17 09/14/17 09/15/17 15:00 23:00 07:00 Intake Total 600 ml Balance 600 ml Intake Oral 600 ml # Voids 3 Result Diagram: 09/14/17 0338 09/14/17 0338 Imaging Last Impressions Head CT 09/11/17 1120 Signed Impressions: Service Date/Time: Monday, September 11, 2017 11:13 - CONCLUSION: No acute disease. Marjan Machado MD Neck CTA 09/10/17 0000 Signed Impressions: Service Date/Time: Sunday, September 10, 2017 11:03 - CONCLUSION: Bilateral significant carotid artery atherosclerosis with narrowing of the proximal right and left internal carotid arteries. The left appears greater than 50%% narrowed and the right appears approximately 50%% narrowed.. Marjan Machado MD Head CTA 09/10/17 0000 Signed Impressions: Service Date/Time: Sunday, September 10, 2017 11:03 - CONCLUSION: No evidence of aneurysm or abnormality within the intracranial arteries. The left vertebral artery is decreased in size as compared to the right but appears patent. Atherosclerosis is identified within the imaged carotid bulbs.. Marjan Machado MD Chest X-Ray 09/10/17 0000 Signed Impressions: Service Date/Time: Sunday, September 10, 2017 10:02 - CONCLUSION: No evidence of acute cardiopulmonary disease. Marjan Machado MD Objective Remarks General: NAD, AAOx3 Chest: CTA Cardiac: Irregularly irregular Abd: +BS, soft ND/NT Ext: No edema Procedures none A/P Problem List: (1) CVA (cerebral vascular accident) ICD Codes: I63.9 - Cerebral infarction, unspecified Status: Acute Plan: CVA (cerebral vascular accident) - Pt is a 66 y/o female with A. fib (not on any anticoagulation), HTN, HLD, morbid obesity, hypothyroidism, and LIBBY who presented to ED on 09/10/17 with complaints of left arm weakness associated with slurring of speech. Pt reportedly had difficulty buckling her seatbelt and then also noticed that the patient had a left facial droop and was dropping objects out of the left hand, also states she felt like her left upper extremity was clumsy and she had decreased sensation on the left side of the body. - Pt was admitted as as stroke alert - CT head (09/10) was negative - CTA brain (09/10) --> No evidence of aneurysm or abnormality within the intracranial arteries. The left vertebral artery is decreased in size as compared to the right but appears patent. Atherosclerosis is identified within the imaged carotid bulbs. - Neck CTA (09/10) --> Bilateral significant carotid artery atherosclerosis with narrowing of the proximal right and left internal carotid arteries. The left appears greater than 50% narrowed and the right appears approximately 50% narrowed. - Discussed results with Dr. Vega who agrees to see patient in consult - MRI ordered and pending plan to DC in AM after MRI resulted - Neurology and pt received TPA and was admitted to [facility] - Initially patient's BP was high requiring Cardene drip which was weaned off - Pt had clinical improvement and her neuro symptoms resolved - Repeat Head CT (09/11) was negative - PT/OT/ST - Lipid profile noted, LDL is 60. Lipitor 80mg HS - 2D echo (09/12/17) --> Mild LV dilatation, estimated EF 30-35%, [id number] MV regurg, Mild tricuspid valve regurg, estimated PA pressure 49mmHg - Pt was started on ASA 325mg po daily - Pt is on Valsartan 40mg po BID for BP control. - Pt was noted to be in A. fib at admission and is not on any chronic anticoagulation - We will stop ASA and start Eliquis 5mg po BID - Monitor clinical status closely Atrial fibrillation - Pt with noted A fib at admission and hx of A. fib not on anticoagulation - Eliquis 5mg po BID Hypertension - BP is better controlled currently - Pt is on Diovan 40mg po BID COPD (chronic obstructive pulmonary disease) - Duonebs Q6HWA Insulin dependent diabetes mellitus - NovoLog SSI, medium dose - Pt also uses NPH 20 units daily at home, may need to convert to Levemir 10 units daily while admitted - Accu checks LIBBY on CPAP - Use home CPAP at night CHF (congestive heart failure) - 2D echo (09/12/17) --> Mild LV dilatation, estimated EF 30-35%, [id number] MV regurg, Mild tricuspid valve regurg, estimated PA pressure 49mmHg - Previous 2D echo in 2015 noted EF 40-45% - Pt was resumed on Diovan 40mg po BID - She was also noted to be on Lasix 40mg po BID as an outpt. We will resume Lasix 40mg po daily on 09/14/17 and monitor labs and clinical status closely (2) Atrial fibrillation ICD Codes: I48.91 - Unspecified atrial fibrillation Status: Chronic (3) Hypertension ICD Codes: I10 - Essential (primary) hypertension Status: Chronic (4) COPD (chronic obstructive pulmonary disease) ICD Codes: J44.9 - Chronic obstructive pulmonary disease, unspecified Status: Chronic (5) Insulin dependent diabetes mellitus ICD Codes: E11.9 - Type 2 diabetes mellitus without complications; Z79.4 - care home (current) use of insulin Status: Chronic (6) LIBBY on CPAP ICD Codes: G47.33 - Obstructive sleep apnea (adult) (pediatric); Z99.89 - Dependence on other enabling machines and devices (7) CHF (congestive heart failure) ICD Codes: I50.9 - Heart failure, unspecified Status: Chronic Assessment and Plan Patient examined. Assessment and plan formulated with Jillian Gray PA-C. I agree with the above. Problem Qualifiers (1) CVA (cerebral vascular accident): Qualified Codes: I63.9 - Cerebral infarction, unspecified (2) Atrial fibrillation: Qualified Codes: I48.91 - Unspecified atrial fibrillation (3) CHF (congestive heart failure): Jillian Gray Sep 14, 2017 17:36 John Arenas DO Sep 16, 2017 14:24
--- NOTE | 2017-09-14 17:51 | RADRPT ---
EXAM DATE/TIME: 09/14/2017 17:12 [facility] COMPARISON: No previous studies available for comparison. INDICATIONS : CVA. MEDICAL HISTORY : Hypertension. SURGICAL HISTORY : Tonsillectomy. ENCOUNTER: Subsequent ACUITY: 3 day PAIN SCORE: 0/10 LOCATION: head. TECHNIQUE: Multiplanar, multisequence MRI of the brain was performed without contrast. FINDINGS: CEREBRUM: The ventricles are normal for age. No evidence of midline shift, mass lesion, hemorrhage or acute in farction. No extraaxial fluid collections are seen. The pituitary gland and suprasellar cistern are normal in configuration. WHITE MATTER: On the flair weighted images there are multiple small punctate scattered foci of increased signal not ed in the white matter. POSTERIOR FOSSA: The cerebellum and brainstem are intact. The 4th ventricle is midline. The cerebellopontine angle is unremarkable. The cerebellar tonsils are normal in position. DIFFUSION IMAGING: No focal areas of restricted diffusion are seen. No evidence of acute infarction. EXTRACRANIAL: The visualized portions of the orbits and paranasal sinuses are unremarkable. CONCLUSION: 1. No acute hemorrhage, mass or infarction. 2. Mild atrophy and chronic small vessel ischemic change. Bill Mckeon MD on September 14, 2017 at 17:46 Board Certified Radiologist. This report was verified electronically.
[2017-09-14] MEDS ORDERED: DORZOLAMIDE/TIMOLOL OPTH SOLN 10 ML BTL EACH EYE SCH (21:00)
[2017-09-14] MEDS: ATORVASTATIN 80 MG TAB PO SCH (21:45)
[2017-09-15] VITALS: BP 136/64; PULSE 79; RESP 16; TEMP 97.9; O2SAT 98
[2017-09-15 00:18] VITALS: O2SAT 98
[2017-09-15 04:00] VITALS: BP 121/58; PULSE 81; RESP 14; TEMP 97.7; O2SAT 97
[2017-09-15 04:14] LABS: HEMATOCRIT 32.2 % (35.0-46.0); HEMOGLOBIN 11.7 GM/DL (11.6-15.3); MEAN CELL VOLUME 92.9 FL (80.0-100.0); MEAN CORPUSCULAR HEMOGLOBIN 33.6 PG (27.0-34.0); MEAN PLATELET VOLUME 8.1 FL (7.0-11.0); PLATELET COUNT 176 TH/MM3 (150-450); RED BLOOD COUNT 3.47 MIL/MM3 (4.00-5.30); RED CELL DISTRIBUTION WIDTH 16.7 % (11.6-17.2); WHITE BLOOD COUNT 8.7 TH/MM3 (4.0-11.0)
[2017-09-15 04:35] LABS: MEAN CORPUSCULAR HGB CONC 36.2 % (32.0-36.0)
[2017-09-15 05:26] LABS: BICARBONATE 29.3 MEQ/L (21.0-32.0); BLOOD UREA NITROGEN 25 MG/DL (7-18); CALCIUM 8.6 MG/DL (8.5-10.1); CHLORIDE 102 MEQ/L (98-107); GLOMERULAR FILTRATION RATE 30 ML/MIN (>89); GLUCOSE,RANDOM 124 MG/DL (74-106); SODIUM (NA) 139 MEQ/L (136-145)
[2017-09-15] MEDS: LEVOTHYROXINE SODIUM 125 MCG TAB PO SCH (06:39)
[2017-09-15 08:00] VITALS: BP 121/68; PULSE 62; RESP 16; TEMP 97.5; O2SAT 99
[2017-09-15] MEDS: INSULIN NovoLIN REGULAR SUPPLEMENTAL SCALE SQ SCH (08:00)
[2017-09-15] MEDS: MONTELUKAST SODIUM 10 MG TAB PO SCH (08:34)
[2017-09-15] MEDS: FUROSEMIDE 40 MG TAB PO SCH (08:34)
[2017-09-15] MEDS: DORZOLAMIDE 2% OPTH SOLN 200 DROP/10 ML BTLO EACH EYE SCH (08:36)
[2017-09-15] MEDS: APIXABAN 5 MG TABLET PO SCH (09:15)
[2017-09-15] MEDS: VALSARTAN 40 MG TAB PO SCH (09:15)
[2017-09-15 16:36] LABS: HEMOGLOBIN A1C 8.4 % (4.3-6.0)
== END 2017-09-15 11:15 | disposition home health service (06) | DRG 62 ==
LOC: NEPC 09:26 → NEDA 10:28 → N03A 14:59 → N03B 09-13 12:04
PROVIDERS: ADMIT Hospitalist; ATTEND Hospitalist
DX: I63.9 Cerebral infarction, unspecified (principal); Z68.41 Body mass index [BMI] 40.0-44.9, adult; I11.0 Hypertensive heart disease with heart failure; I50.9 Heart failure, unspecified; I48.0 Paroxysmal atrial fibrillation; G81.94 Hemiplegia, unspecified affecting left nondominant side; E66.2 Morbid (severe) obesity with alveolar hypoventilation; J44.9 Chronic obstructive pulmonary disease, unspecified; I65.23 Occlusion and stenosis of bilateral carotid arteries; E11.9 Type 2 diabetes mellitus without complications; E78.5 Hyperlipidemia, unspecified; E03.9 Hypothyroidism, unspecified; R29.810 Facial weakness; I25.10 Atherosclerotic heart disease of native coronary artery without angina pectoris; H40.9 Unspecified glaucoma; R47.81 Slurred speech; R29.704 NIHSS score 4; E07.9 Disorder of thyroid, unspecified; Z79.4 Long term (current) use of insulin; Z86.73 Personal history of transient ischemic attack (TIA), and cerebral infarction without residual deficits; Z88.1 Allergy status to other antibiotic agents; Z88.6 Allergy status to analgesic agent; Z91.012 Allergy to eggs
CPT/HCPCS: 70450; 70496; 70498; 70551; 71045; 80048; 80061; 80307; 81001; 82550; 82948; 83036; 83735; 84484; 84702; 85025; 85027; 85384; 85610; 85730; 86850; 86900; 86901; 93005; 93306; 94150; 94640; 94664; 94667; 94668; J2997; J7030; J7050; Q9967